=== PATIENT | female | born 1970 | race Caucasian/White ===

== ENCOUNTER → 2016-11-21 | Outpatient (CLI) | payer OTHER ==
--- NOTE | 2016-11-21 15:58 | US ---
EXAMINATION TYPE: US pelvic complete DATE OF EXAM: 11/21/2016 COMPARISON: 10/11/2015 CLINICAL HISTORY: 46-year-old female Excessive and frequent menstruation n92.0. Patient states irregu lar, very heavy menses TECHNIQUE: Transabdominal (TA), TV not obtained due to enlarged uterus and ovaries are only able to be visualized transabdominally per previous scans Date of LMP: 10/28/2016 FINDINGS: Uterus: Anteverted measuring 14.3 x 6.1 x 8.4 cm. There is diffuse myometrial heterogeneity with at least 3 focal fibroids, largest measuring 3.6 cm centered along the mid uterine body intramural in th e endometrium. Endometrial Stripe: 1.3 cm which correspond to the secretory phase. Right Ovary: 2.4 x 2.9 x 2.3 cm Left Ovary: 2.5 x 2.3 x 2.7 cm Ovaries appear within normal limits. No evident adnexal abnormality or cul-de-sac free fluid. IMPRESSION: Fibroid uterus. Dominant focal fibroid measures 3.6 cm, increased in size from 10/11/2015 where it jasson ured 2.4 cm. It has a submucosal location interrupting the endometrium of the mid uterine body.
== END | disposition home or self-care (01) ==
LOC: RADUSWWP 13:53
PROVIDERS: ATTEND Internal Medicine
DX: N92.0 Excessive and frequent menstruation with regular cycle (principal)
CPT/HCPCS: 76856

== ENCOUNTER → 2017-01-31 | Outpatient (CLI) | payer OTHER ==
[2017-01-31 11:05] LABS: ALT 30 U/L (9-52); AST 20 U/L (14-36); Alkaline Phosphatase 59 U/L (38-126); Anion Gap 7 mmol/L; Blood Urea Nitrogen 12 mg/dL (7-17); Calcium 9.5 mg/dL (8.4-10.2); Carbon Dioxide 24 mmol/L (22-30); Chloride 106 mmol/L (98-107); Cholesterol 158 mg/dL (<200); Glucose 109 mg/dL (74-99); HDL Cholesterol 46 mg/dL (40-60); Non-African American GFR(MDRD) >60 (>60 ml/min/1.73 sqM); Potassium 4.6 mmol/L (3.5-5.1); Sodium 137 mmol/L (137-145); Total Bilirubin 0.6 mg/dL (0.2-1.3)
== END | disposition home or self-care (01) ==
LOC: LABWHC1 09:45
PROVIDERS: ATTEND Internal Medicine
DX: I10 Essential (primary) hypertension (principal); B18.2 Chronic viral hepatitis C; R53.83 Other fatigue
CPT/HCPCS: 36415; 80053; 80061; 84443; 85025

== ENCOUNTER → 2017-01-31 | Outpatient (CLI) | payer OTHER ==
[2017-01-31 10:39] LABS: Anisocytosis Slight; Basophils % (A) 1 %; CHCM 30.1; Eosinophils # (A) 0.1 k/uL (0-0.7); Eosinophils % (A) 2 %; HDW 2.76; HGB 12.6 gm/dL (11.4-16.0); Hypochromasia Marked; Luc # (Auto) 0.07; Luc % (Auto) 1; Lymphocytes # (A) 1.1 k/uL (1.0-4.8); Lymphocytes % (A) 22 %; MCH 24.7 pg (25.0-35.0); MCHC 30.9 g/dL (31.0-37.0); Mean Platelet Volume 8.1; Monocytes # (A) 0.4 k/uL (0-1.0); Monocytes % (A) 8 %; Neutrophils # (A) 3.3 k/uL (1.3-7.7); Neutrophils % (A) 66 %; RBC 5.12 m/uL (3.80-5.40); RDW 16.1 % (11.5-15.5); WBC 4.9 k/uL (3.8-10.6); WBC (Perox) 5.21
== END | disposition home or self-care (01) ==
LOC: LABPAT 09:47
PROVIDERS: ATTEND Obstetrics & Gynecology
DX: Z01.818 Encounter for other preprocedural examination (principal)
CPT/HCPCS: 85025

== ENCOUNTER 2017-05-27 09:14 | Observation (INO) | payer OTHER ==
[2017-05-27 09:59] LABS: Amorphous Sediment,Urine Occasional /hpf; Appearance,Urine Cloudy (Clear); Bacteria,Urine Rare /hpf; Bilirubin,Urine Negative (Negative); Blood,Urine Small (Negative); Color,Urine Dark Yellow; Glucose,Urine (UA) Negative (Negative); Ketones,Urine Trace (Negative); Leukocyte Esterase,Urine Moderate (Negative); Mucus,Urine Moderate /hpf; Nitrite,Urine Negative (Negative); Protein,Urine 1+ (Negative); RBC,Urine 8 /hpf (0-5); Specific Gravity,Urine 1.026 (1.001-1.035); Squamous Epithelial Cell,Urine 10 /hpf (0-4); WBC,Urine 9 /hpf (0-5)
--- NOTE | 2017-05-27 10:02 | ED ---
Female Urogenital HPI <Jamshid Cabral - Last Filed: 05/27/17 12:02> - General Source: patient, RN notes reviewed Mode of arrival: ambulatory Limitations: no limitations <Gulshan Roberts - Last Filed: 05/27/17 12:11> - General Chief complaint: Urogenital Stated complaint: Vaginal bleeding Time Seen by Provider: 05/27/17 09:37 - History of Present Illness Initial comments: This a 47-year-old female presents emergency Department chief complaint of vaginal spotting. Patient states she had a hysterectomy 3 months ago. Patient states she had sexual intercourse with night and Monday morning. States that she woke up with some spotting. She was told by her [employer] that she would have some spotting but states that she is concerned that she had some pelvic cramping. Patient states that her sexual course was rougher than usual. She states she has no active bleeding. She did notice that her urine was slightly darker than usual. Denies fever, chills, flank pain. Denies any nausea vomiting. Patient's matrix bath attendant is Dr. Rose. (Gulshan Roberts) - Related Data Home Medications Medication Instructions Recorded Confirmed ALPRAZolam [Xanax] 1 mg PO BID PRN 02/07/17 05/27/17 Acetaminophen Tab [Tylenol Tab] 500 mg PO Q6H PRN 02/07/17 05/27/17 Cyclobenzaprine [Flexeril] 10 mg PO HS 02/07/17 05/27/17 HYDROcodone/APAP 10-325MG [[place] 1 tab PO DAILY PRN 02/07/17 05/27/17 10-325] Metoprolol Tartrate [Lopressor] 25 mg PO BID PRN 05/27/17 05/27/17 Allergies Allergy/AdvReac Type Severity Reaction Status Date / Time No Known Allergies Allergy Verified 05/27/17 10:57 Review of Systems ROS Other: All systems not noted in ROS Statement are negative. <Jamshid Cabral - Last Filed: 05/27/17 12:02> ROS Other: All systems not noted in ROS Statement are negative. <Gulshan Roberts - Last Filed: 05/27/17 12:11> ROS Statement: Those systems with pertinent positive or pertinent negative responses have been documented in the HPI. Past Medical History Additional Past Medical History / Comment(s): vertigo, tachycardia, 2 BULGING DISCS IN BACK(chronic pain, sees Dr Ruiz), BILAT CARPAL TUNNEL. OB history: 4 vaginal deliveries History of Any Multi-Drug Resistant Organisms: None Reported Past Surgical History: Tubal Ligation Additional Past Surgical History / Comment(s): teeth pulled Past Anesthesia/Blood Transfusion Reactions: No Reported Reaction Past Psychological History: Anxiety Smoking Status: Current every day smoker Past Alcohol Use History: Occasional Past Drug Use History: None Reported - Past Family History Mother Family Medical History: No Reported History <Gulshan Roberts - Last Filed: 05/27/17 12:11> General Exam Limitations: no limitations General appearance: alert, in no apparent distress Head exam: Present: atraumatic, normocephalic, normal inspection Respiratory exam: Present: normal lung sounds bilaterally. Absent: respiratory distress, wheezes, rales, rhonchi, stridor Cardiovascular Exam: Present: regular rate, normal rhythm, normal heart sounds. Absent: systolic murmur, diastolic murmur, rubs, gallop, clicks GI/Abdominal exam: Present: soft, tenderness (Minimal suprapubic), normal bowel sounds. Absent: distended, guarding, rebound, rigid External exam: Present: normal external exam, other (Exam performed with Poonam CONTI) Speculum exam: Present: vaginal discharge (There is very thin straw-colored discharge with some blood-tinged areas there was some bubbling noted unable to visualize cervical cuff) Back exam: Absent: CVA tenderness (R), CVA tenderness (L) <Gulshan Roberts - Last Filed: 05/27/17 12:11> Course <Jamshid Cabral - Last Filed: 05/27/17 12:02> <Gulshan Roberts - Last Filed: 05/27/17 12:11> Vital Signs 05/27/17 09:16 Temperature 98.0 F Pulse Rate 108 H Respiratory 20 Rate Blood Pressure 141/97 O2 Sat by Pulse 98 Oximetry - Reevaluation(s) Reevaluation #1: 05/27/17 12:02 PA supervision: I did personally do a [id number] evaluation patient did discuss findings with her. She does demonstrate some mild tenderness to the suprapubic and right lower quadrant abdomen. I did review the imaging and report and discussed the case with Dr. Vigil who did come to the emergency department to see the patient. The CAT scan does show evidence of diverticulitis with presumed small perforation (Jamshid Cabral) Reevaluation #2: 05/27/17 12:07 I did discuss the case with Dr. Vigil and with Dr. Nichols. Patient will be admitted with consultation additionally to [employer] MSW, Dr. Rose (Jamshid Cabral) Medical Decision Making - Lab Data Result diagrams: 05/27/17 10:47 05/27/17 10:47 <Jamshid Cabral - Last Filed: 05/27/17 12:02> - Lab Data Result diagrams: 05/27/17 10:47 05/27/17 10:47 <Gulshan Roberts - Last Filed: 05/27/17 12:11> - Medical Decision Making 47-year-old female presents department for abdominal pain after intercourse. Patient did have pelvic exam which showed vaginal discharge and some concerns for possible fistula. CT was performed showed possibility of diverticulitis secondary to free air and inflammatory changes. Patient was evaluated in the emergency department by Dr. vigil feels that this may be related to vaginal cuff tear secondary to her intercourse. Patient be admitted at this time with IV antibiotics Dr. Nichols, consult in addition with Dr. vigil and Dr. Rose. ( Gulshan Roberts) - Lab Data Lab Results 05/27/17 05/27/17 05/27/17 Range/Units 09:37 10:47 10:47 WBC 10.4 (3.8-10.6) k/uL RBC 5.57 H (3.80-5.40) m/uL Hgb 15.4 (11.4-16.0) gm/dL Hct 45.2 (34.0-46.0) % MCV 81.2 (80.0-100.0) fL MCH 27.6 (25.0-35.0) pg MCHC 34.0 (31.0-37.0) g/dL RDW 16.8 H (11.5-15.5) % Plt Count 229 (150-450) k/uL Neutrophils % 79 % Lymphocytes % 13 % Monocytes % 6 % Eosinophils % 1 % Basophils % 0 % Neutrophils # 8.2 H (1.3-7.7) k/uL Lymphocytes # 1.3 (1.0-4.8) k/uL Monocytes # 0.6 (0-1.0) k/uL Eosinophils # 0.1 (0-0.7) k/uL Basophils # 0.0 (0-0.2) k/uL Anisocytosis Slight Sodium 139 (137-145) mmol/L Potassium 4.3 (3.5-5.1) mmol/L Chloride 106 (98-107) mmol/L Carbon Dioxide 22 (22-30) mmol/L Anion Gap 11 mmol/L BUN 13 (7-17) mg/dL Creatinine 0.80 (0.52-1.04) mg/dL Est GFR (CKD-EPI)AfAm >90 (>60 ml/min/1.73 sqM) Est GFR (CKD-EPI)NonAf 89 (>60 ml/min/1.73 sqM) Glucose 108 H (74-99) mg/dL Plasma Lactic Acid Robe (0.7-2.0) mmol/L Calcium 9.4 (8.4-10.2) mg/dL Total Bilirubin 1.3 (0.2-1.3) mg/dL AST 20 (14-36) U/L ALT 27 (9-52) U/L Alkaline Phosphatase 74 (38-126) U/L Total Protein 7.2 (6.3-8.2) g/dL Albumin 4.0 (3.5-5.0) g/dL Urine Color Dark Yellow Urine Appearance Cloudy H (Clear) Urine pH 6.0 (5.0-8.0) Ur Specific [place] 1.026 (1.001-1.035) Urine Protein 1+ H (Negative) Urine Glucose (UA) Negative (Negative) Urine Ketones Trace H (Negative) Urine Blood Small H (Negative) Urine Nitrite Negative (Negative) Urine Bilirubin Negative (Negative) Urine Urobilinogen 3.0 (<2.0) mg/dL Ur Leukocyte Esterase Moderate H (Negative) Urine RBC 8 H (0-5) /hpf Urine WBC 9 H (0-5) /hpf Ur Squamous Epith Cells 10 H (0-4) /hpf Amorphous Sediment Occasional H (None) /hpf Urine Bacteria Rare H (None) /hpf Urine Mucus Moderate H (None) /hpf 05/27/17 Range/Units 10:47 WBC (3.8-10.6) k/uL RBC (3.80-5.40) m/uL Hgb (11.4-16.0) gm/dL Hct (34.0-46.0) % MCV (80.0-100.0) fL MCH (25.0-35.0) pg MCHC (31.0-37.0) g/dL RDW (11.5-15.5) % Plt Count (150-450) k/uL Neutrophils % % Lymphocytes % % Monocytes % % Eosinophils % % Basophils % % Neutrophils # (1.3-7.7) k/uL Lymphocytes # (1.0-4.8) k/uL Monocytes # (0-1.0) k/uL Eosinophils # (0-0.7) k/uL Basophils # (0-0.2) k/uL Anisocytosis Sodium (137-145) mmol/L Potassium (3.5-5.1) mmol/L Chloride (98-107) mmol/L Carbon Dioxide (22-30) mmol/L Anion Gap mmol/L BUN (7-17) mg/dL Creatinine (0.52-1.04) mg/dL Est GFR (CKD-EPI)AfAm (>60 ml/min/1.73 sqM) Est GFR (CKD-EPI)NonAf (>60 ml/min/1.73 sqM) Glucose (74-99) mg/dL Plasma Lactic Acid Robe 0.9 (0.7-2.0) mmol/L Calcium (8.4-10.2) mg/dL Total Bilirubin (0.2-1.3) mg/dL AST (14-36) U/L ALT (9-52) U/L Alkaline Phosphatase (38-126) U/L Total Protein (6.3-8.2) g/dL Albumin (3.5-5.0) g/dL Urine Color Urine Appearance (Clear) Urine pH (5.0-8.0) Ur Specific [place] (1.001-1.035) Urine Protein (Negative) Urine Glucose (UA) (Negative) Urine Ketones (Negative) Urine Blood (Negative) Urine Nitrite (Negative) Urine Bilirubin (Negative) Urine Urobilinogen (<2.0) mg/dL Ur Leukocyte Esterase (Negative) Urine RBC (0-5) /hpf Urine WBC (0-5) /hpf Ur Squamous Epith Cells (0-4) /hpf Amorphous Sediment (None) /hpf Urine Bacteria (None) /hpf Urine Mucus (None) /hpf Disposition <Jamshid Cabral - Last Filed: 05/27/17 12:02> <Gulshan Roberts - Last Filed: 05/27/17 12:11> Clinical Impression: Intra-abdominal free air of unknown etiology, Abdominal pain Disposition: ADMITTED IP TO THIS HOSP Condition: Fair Referrals: Chantel Nichols MD [Primary Care Provider] - 1-2 days
[2017-05-27] MEDS ORDERED: RX INFO: IV CONTRAST WAS GIVEN 1 EACH MISC MISCELLANE PRN (10:36)
[2017-05-27 11:07] LABS: Anisocytosis Slight; Basophils % (A) 0 %; Eosinophils # (A) 0.1 k/uL (0-0.7); Eosinophils % (A) 1 %; HCT 45.2 % (34.0-46.0); HGB 15.4 gm/dL (11.4-16.0); Lymphocytes # (A) 1.3 k/uL (1.0-4.8); Lymphocytes % (A) 13 %; MCH 27.6 pg (25.0-35.0); MCV 81.2 fL (80.0-100.0); Mean Platelet Volume 7.8; Monocytes # (A) 0.6 k/uL (0-1.0); Monocytes % (A) 6 %; Neutrophils # (A) 8.2 k/uL (1.3-7.7); Neutrophils % (A) 79 %; Platelet Count 229 k/uL (150-450); RBC 5.57 m/uL (3.80-5.40); RDW 16.8 % (11.5-15.5); WBC 10.4 k/uL (3.8-10.6)
[2017-05-27 11:12] LABS: ALT 27 U/L (9-52); AST 20 U/L (14-36); Alkaline Phosphatase 74 U/L (38-126); Anion Gap 11 mmol/L; Blood Urea Nitrogen 13 mg/dL (7-17); Calcium 9.4 mg/dL (8.4-10.2); Carbon Dioxide 22 mmol/L (22-30); Chloride 106 mmol/L (98-107); Glucose 108 mg/dL (74-99); Potassium 4.3 mmol/L (3.5-5.1); Sodium 139 mmol/L (137-145); Total Bilirubin 1.3 mg/dL (0.2-1.3); Total Protein 7.2 g/dL (6.3-8.2)
--- NOTE | 2017-05-27 11:31 | CT ---
EXAMINATION TYPE: CT abdomen pelvis w con DATE OF EXAM: 05/27/2017 REFERENCE: NONE HISTORY: Pain HISTORY: Pelvic pain post sexual activity 2 days. Post OP hysterectomy February 2017 REFERENCE: NONE CT DLP: 957 mGy Automated exposure control for dose reduction was used. TECHNIQUE: Helical acquisition through the abdomen and pelvis was obtained following the oral ingesti on of without Oral Contrast and following intravenous administration of 100 mL of Isovue 300. The caren a was reformatted in axial, coronal and sagittal projections. FINDINGS: Visualized portions of the lungs are clear. There is no pleural or pericardial fluid. The heart is not enlarged. Within the abdomen, the liver is upper limits of normal in size. The spleen and gallbladder are danielle l. There are few drops of free air surrounding the liver. There is inflammatory change adjacent to the s igmoid colon and there is at least one bubble of free air in the pelvis. This would BE compatible wit h diverticulitis with a small perforation. No pericolonic abscess is seen. Both adrenal glands are normal. The pancreas is unremarkable. Both kidneys demonstrate function and appear morphologically normal. There is no significant retroperitoneal, iliac or inguinal adenopathy. The uterus and ovaries are not visualized. The appendix is normal. Small bowel loops are normal. There is no significant free fluid. There is mild hypertrophic spondylosis and degenerative disc disease within the spine. IMPRESSION: 1. EVIDENCE OF MILD, ACUTE DIVERTICULITIS WITH SMALL PERFORATION. 2. MILD DEGENERATIVE CHANGE WITHIN THE SPINE.
[2017-05-27] MEDS ORDERED: PIPERACILLIN-TAZOBACTAM 3.375 GM in DEXTROSE/WATER 1 50ML.BAG IVPB STA (11:38)
[2017-05-27] MEDS ORDERED: ONDANSETRON 4 MG/2 ML VIAL IVP PRN (12:06)
[2017-05-27] MEDS ORDERED: HYDROcodone/APAP 10-325MG 1 EACH TAB PO PRN (12:08)
--- NOTE | 2017-05-27 12:19 | P.GSCN ---
History of Present Illness Consult date: 05/27/17 Reason for Consult: Abdominal pain History of present illness: I was called by the ER to evaluate this patient with complaints of lower abdominal pain. This began in the last day or so. Pain is lower abdomen. Some anorexia. No nausea or vomiting. She said her lower abdominal pain was increased with bowel movement. No rectal bleeding or melena. She has a history of a robotic hysterectomy 3 months ago. She has had some vaginal discharge since that time. Today her vaginal discharge had a more bloody and semi-purulent appearance. Denies fevers. She is afebrile. She is tachycardic. White blood cell count and hemoglobin normal. The patient states that she was somewhat intoxicated and had rough intercourse a proximally 24-36 hours ago. She believes this precipitated the symptoms. CAT scan was obtained. CAT scan shows some inflammatory changes in the pelvis. There is a few bubbles of pneumoperitoneum adjacent to the right lobe of the liver. The sigmoid colon does have a relatively normal appearance although she does have diverticulosis. She has a family history of diverticulitis in her mother who underwent a Meadows's procedure. ER speculum evaluation showed no definite tear. 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 Review of Systems The patient denies any acute changes in vision or hearing, no dysphagia or odynophagia, no chest pain or shortness of breath, no dysuria or hematuria, no headache, no runny nose, no rectal bleeding or melena, no unexplained weight loss Past Medical History Additional Past Medical History / Comment(s): vertigo, tachycardia, 2 BULGING DISCS IN BACK(chronic pain, sees Dr Ruiz), BILAT CARPAL TUNNEL. OB history: 4 vaginal deliveries History of Any Multi-Drug Resistant Organisms: None Reported Past Surgical History: Tubal Ligation Additional Past Surgical History / Comment(s): teeth pulled Past Anesthesia/Blood Transfusion Reactions: No Reported Reaction Past Psychological History: Anxiety Smoking Status: Current every day smoker Past Alcohol Use History: Occasional Past Drug Use History: None Reported - Past Family History Mother Family Medical History: No Reported History Medications and Allergies Home Medications Medication Instructions Recorded Confirmed Type ALPRAZolam [Xanax] 1 mg PO BID PRN 02/07/17 05/27/17 History Acetaminophen Tab [Tylenol Tab] 500 mg PO Q6H PRN 02/07/17 05/27/17 History Cyclobenzaprine [Flexeril] 10 mg PO HS 02/07/17 05/27/17 History HYDROcodone/APAP 10-325MG [[place] 1 tab PO DAILY PRN 02/07/17 05/27/17 History 10-325] Metoprolol Tartrate [Lopressor] 25 mg PO BID PRN 05/27/17 05/27/17 History Allergies Allergy/AdvReac Type Severity Reaction Status Date / Time No Known Allergies Allergy Verified 05/27/17 10:57 Surgical - Exam Vital Signs Temp Pulse Resp BP Pulse Ox 98.0 F 108 H 20 141/97 98 05/27/17 09:16 05/27/17 09:16 05/27/17 09:16 05/27/17 09:16 05/27/17 09:16 Physical exam: General: Well-developed, well-nourished HEENT: Normocephalic, sclerae nonicteric Abdomen: Lower abdominal tenderness, mild fullness, no rebound or guarding, no upper abdominal tenderness Extremities: No edema Neuro: Alert and oriented Results - Labs 05/27/17 10:47 05/27/17 10:47 Abnormal Lab Results - Last 24 Hours (Table) 05/27/17 05/27/17 05/27/17 Range/Units 09:37 10:47 10:47 RBC 5.57 H (3.80-5.40) m/uL RDW 16.8 H (11.5-15.5) % Neutrophils # 8.2 H (1.3-7.7) k/uL Glucose 108 H (74-99) mg/dL Urine Appearance Cloudy H (Clear) Urine Protein 1+ H (Negative) Urine Ketones Trace H (Negative) Urine Blood Small H (Negative) Ur Leukocyte Esterase Moderate H (Negative) Urine RBC 8 H (0-5) /hpf Urine WBC 9 H (0-5) /hpf Ur Squamous Epith Cells 10 H (0-4) /hpf Amorphous Sediment Occasional H (None) /hpf Urine Bacteria Rare H (None) /hpf Urine Mucus Moderate H (None) /hpf Diabetes panel 05/27/17 Range/Units 10:47 Sodium 139 (137-145) mmol/L Potassium 4.3 (3.5-5.1) mmol/L Chloride 106 (98-107) mmol/L Carbon Dioxide 22 (22-30) mmol/L BUN 13 (7-17) mg/dL Creatinine 0.80 (0.52-1.04) mg/dL Glucose 108 H (74-99) mg/dL Calcium 9.4 (8.4-10.2) mg/dL AST 20 (14-36) U/L ALT 27 (9-52) U/L Alkaline Phosphatase 74 (38-126) U/L Total Protein 7.2 (6.3-8.2) g/dL Albumin 4.0 (3.5-5.0) g/dL Calcium panel 05/27/17 Range/Units 10:47 Calcium 9.4 (8.4-10.2) mg/dL Albumin 4.0 (3.5-5.0) g/dL Pituitary panel 05/27/17 Range/Units 10:47 Sodium 139 (137-145) mmol/L Potassium 4.3 (3.5-5.1) mmol/L Chloride 106 (98-107) mmol/L Carbon Dioxide 22 (22-30) mmol/L BUN 13 (7-17) mg/dL Creatinine 0.80 (0.52-1.04) mg/dL Glucose 108 H (74-99) mg/dL Calcium 9.4 (8.4-10.2) mg/dL Adrenal panel 05/27/17 Range/Units 10:47 Sodium 139 (137-145) mmol/L Potassium 4.3 (3.5-5.1) mmol/L Chloride 106 (98-107) mmol/L Carbon Dioxide 22 (22-30) mmol/L BUN 13 (7-17) mg/dL Creatinine 0.80 (0.52-1.04) mg/dL Glucose 108 H (74-99) mg/dL Calcium 9.4 (8.4-10.2) mg/dL Total Bilirubin 1.3 (0.2-1.3) mg/dL AST 20 (14-36) U/L ALT 27 (9-52) U/L Alkaline Phosphatase 74 (38-126) U/L Total Protein 7.2 (6.3-8.2) g/dL Albumin 4.0 (3.5-5.0) g/dL Assessment and Plan (1) Intra-abdominal free air of unknown etiology Narrative/Plan: The clinical scenario was discussed in detail with the patient. Given the appearance of the sigmoid colon on CAT scan I'm more inclined to believe the pneumoperitoneum and the pelvic inflammatory changes are related to the rough intercourse and probable disruption of the vaginal cuff. Will begin broad- spectrum antibiotics. Option of diagnostic laparoscopy was reviewed. She would like to avoid surgery if possible. I've also discussed this case with Dr. Jones who is covering for Dr. Rose. He will evaluate this patient and agrees with the current plan. Begin clear liquids. We'll follow closely. Current Visit: Yes Status: Acute Code(s): K66.8 - OTHER SPECIFIED DISORDERS OF PERITONEUM SNOMED Code(s): 82951497
[2017-05-27] MEDS ORDERED: PIPERACILLIN-TAZOBACTAM 3.375 GM in DEXTROSE/WATER 1 50ML.BAG IVPB SCH (16:00)
[2017-05-27 16:02] VITALS: RESP 16
[2017-05-27] MEDS: metroNIDAZOLE-NS PMX 500 MG in SALINE 1 100ML.BAG IVPB SCH ×2 (16:54→23:49)
[2017-05-27] MEDS: PIPERACILLIN-TAZOBACTAM 3.375 GM in DEXTROSE/WATER 1 50ML.BAG IVPB SCH (20:12)
[2017-05-27] MEDS: ALPRAZolam 1 MG TAB PO PRN (20:12)
[2017-05-27] MEDS: METOPROLOL TARTRATE 25 MG TAB PO SCH (20:12)
[2017-05-28] MEDS: PIPERACILLIN-TAZOBACTAM 3.375 GM in DEXTROSE/WATER 1 50ML.BAG IVPB SCH ×2 (04:15→11:31)
--- NOTE | 2017-05-28 07:21 | P.OBCN ---
History of Present Illness Consult date: 05/28/17 Requesting physician: Jeffery Grande Reason for consult: other (Left lower quadrant pain after intercourse) Chief complaint: Left lower quadrant pain History of present illness: This patient is a pleasant 47-year-old 4 para [address] Rose's who status post DaVinci vaginal hysterectomy and bilateral salpingo- oophorectomy on February 09 for benign indications. Patient had a uncomplicated postoperative course and was seen by Dr. Rose on March 13 an examination at that time showed an intact vaginal cuff and normal postop findings. Of note the patient was noted to have a growth during the intraoperative cystoscopy of the bladder. Patient was referred to Dr. 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 This apparently does not require any further evaluation. Patient states that on evening / Monday morning she had a little bit too much to drink and apparently had traumatic intercourse. Following intercourse patient developed left lower quadrant and pelvic pain. She also noticed some small amount of vaginal bleeding. Because the pain persisted she went to the emergency department and evaluation there shows a normal CBC however CAT scan shows some inflammatory changes in the sigmoid area and possible small area of free air. There was possible concern for a small diverticular perforation per the radiologist. Patient denies any nausea, vomiting, diarrhea. She denies fever or any other abdominal pain. She's been tolerating regular diet. She denies history of diverticulitis or other bowel problems. Patient was seen by Dr. Grande and thought not to have an acute abdomen but due to the free air, recommendations were for admission for observation and I agreed. Patient states that she continues to feel well this morning and her pain is still there but continues to improve. She is no longer having vaginal bleeding. Review of Systems Constitutional: Reports as per HPI Gastrointestinal: Reports as per HPI, Reports constipation Genitourinary: Reports as per HPI Past Medical History Additional Past Medical History / Comment(s): vertigo, tachycardia, 2 BULGING DISCS IN BACK(chronic pain, sees Dr Ruiz), BILAT CARPAL TUNNEL. OB history: 4 vaginal deliveries History of Any Multi-Drug Resistant Organisms: None Reported Past Surgical History: Tubal Ligation Additional Past Surgical History / Comment(s): teeth pulled. Da Abel vaginal hysterectomy and bilateral salpingo-oophorectomy. Past Anesthesia/Blood Transfusion Reactions: No Reported Reaction Past Psychological History: Anxiety Smoking Status: Current every day smoker Past Alcohol Use History: Occasional Additional Past Alcohol Use History / Comment(s): SMOKES < 1 PPD SINCE AGE 16 Past Drug Use History: None Reported - Past Family History Mother Family Medical History: No Reported History Medications and Allergies Home Medications Medication Instructions Recorded Confirmed Type ALPRAZolam [Xanax] 1 mg PO BID PRN 02/07/17 05/27/17 History Acetaminophen Tab [Tylenol Tab] 500 mg PO Q6H PRN 02/07/17 05/27/17 History Cyclobenzaprine [Flexeril] 10 mg PO HS 02/07/17 05/27/17 History HYDROcodone/APAP 10-325MG [[place] 1 tab PO DAILY PRN 02/07/17 05/27/17 History 10-325] Metoprolol Tartrate [Lopressor] 25 mg PO BID PRN 05/27/17 05/27/17 History Allergies Allergy/AdvReac Type Severity Reaction Status Date / Time No Known Allergies Allergy Verified 05/27/17 15:40 Exam - Vital Signs Vital signs: Vital Signs Temp Pulse Pulse Resp BP BP Pulse Ox 05/27/17 19:43 98.1 F 83 16 115/76 97 05/27/17 15:25 98.5 F 92 16 137/78 97 05/27/17 14:50 98.6 F 05/27/17 14:36 96 18 153/86 98 05/27/17 14:00 101 H 20 142/56 97 05/27/17 12:00 98.5 F 102 H 20 152/84 96 05/27/17 09:16 98.0 F 108 H 20 141/97 98 Intake and Output 05/27/17 05/28/17 05/28/17 22:59 06:59 14:59 Intake Total 1180 0 Balance 1180 0 Intake: Oral 1180 0 Other: # Voids 1 - OBG Physical Exam Abdomen: bowel sounds normal (Abdomen soft nontender. There is no rebound or guarding. She localized where her pain was to the deep left lower quadrant.), no diffuse tenderness, no bruit present, no guarding noted, no hepatomegaly, no splenomegaly, no mass Vulva: both: normal Cervix: absent (Speculum exam shows a small amount of yellow discharge. There is no bleeding. I'm unable to see any defect in the vaginal cuff or laceration. ) Uterus: absent Results CT of the abdomen and pelvis as above. Result Diagrams: 05/27/17 10:47 05/27/17 10:47 Abnormal Lab Results - Last 24 Hours (Table) 05/27/17 05/27/17 05/27/17 Range/Units 09:37 10:47 10:47 RBC 5.57 H (3.80-5.40) m/uL RDW 16.8 H (11.5-15.5) % Neutrophils # 8.2 H (1.3-7.7) k/uL Glucose 108 H (74-99) mg/dL Urine Appearance Cloudy H (Clear) Urine Protein 1+ H (Negative) Urine Ketones Trace H (Negative) Urine Blood Small H (Negative) Ur Leukocyte Esterase Moderate H (Negative) Urine RBC 8 H (0-5) /hpf Urine WBC 9 H (0-5) /hpf Ur Squamous Epith Cells 10 H (0-4) /hpf Amorphous Sediment Occasional H (None) /hpf Urine Bacteria Rare H (None) /hpf Urine Mucus Moderate H (None) /hpf Microbiology - Last 24 Hours (Table) 05/27/17 09:37 Urine Culture - Preliminary Urine,Clean Catch Assessment and Plan Assessment: This is a pleasant 47-year-old 4 para 4 female whose developed some left lower quadrant pain status post traumatic intercourse. Patient is approximately 14 weeks out from a laparoscopic hysterectomy. The concern here of course is the fact that there was a tiny bit of free air noted on the patient 's CAT scan. Although I cannot find a defect in the vaginal cuff or laceration , certainly given the clinical picture of the patient having traumatic intercourse and recent surgery and its quite feasible that these findings are secondary to a small amount of air that perhaps went through the vaginal cuff. At this point clinically there is no evidence of a bowel perforation or peritonitis. From a gynecologic standpoint, this patient appears stable and if this is secondary to traumatic intercourse will continue to improve. I do agree with perhaps a 7 day course of oral antibiotics (Flagyl or antibiotic of choice per Dr. Grande) and a short term follow-up with Dr. Rose this week in the office on or Monday. I discussed this in detail with the patient, including Dr. Grande's in my concerns and she agrees to follow up in the office later this week or call if she has any other worsening of her pain or other symptomatology. I really do not think this is a ruptured diverticulum at this point in the absence of an elevated white count or other abdominal findings. She is getting a repeat CBC this morning and will be seen by Dr. Grande at that time. She is cleared for discharge from a gynecology standpoint. Patient was instructed on pelvic rest until seen by Dr. Rose. (1) Abdominal pain Current Visit: Yes Status: Acute Code(s): R10.9 - UNSPECIFIED ABDOMINAL PAIN SNOMED Code(s): 22207392 (2) Intra-abdominal free air of unknown etiology Current Visit: Yes Status: Acute Code(s): K66.8 - OTHER SPECIFIED DISORDERS OF PERITONEUM SNOMED Code(s): 79367146
[2017-05-28 07:53] LABS: Anisocytosis Slight; Basophils % (A) 1 %; Eosinophils # (A) 0.2 k/uL (0-0.7); Eosinophils % (A) 3 %; HCT 40.8 % (34.0-46.0); HGB 13.4 gm/dL (11.4-16.0); Lymphocytes # (A) 1.1 k/uL (1.0-4.8); Lymphocytes % (A) 19 %; MCH 27.3 pg (25.0-35.0); MCHC 32.7 g/dL (31.0-37.0); MCV 83.3 fL (80.0-100.0); Mean Platelet Volume 7.5; Monocytes # (A) 0.4 k/uL (0-1.0); Monocytes % (A) 6 %; Neutrophils # (A) 4.1 k/uL (1.3-7.7); Neutrophils % (A) 70 %; Platelet Count 234 k/uL (150-450); RDW 16.5 % (11.5-15.5); WBC 5.8 k/uL (3.8-10.6)
[2017-05-28 08:06] LABS: Anion Gap 7 mmol/L; Blood Urea Nitrogen 11 mg/dL (7-17); Calcium 8.4 mg/dL (8.4-10.2); Carbon Dioxide 24 mmol/L (22-30); Chloride 110 mmol/L (98-107); Glucose 86 mg/dL (74-99); Sodium 141 mmol/L (137-145)
[2017-05-28] MEDS: metroNIDAZOLE-NS PMX 500 MG in SALINE 1 100ML.BAG IVPB SCH (08:37)
[2017-05-28] MEDS: METOPROLOL TARTRATE 25 MG TAB PO SCH (08:49)
[2017-05-28] MEDS: ALPRAZolam 1 MG TAB PO PRN (08:51)
[2017-05-28] MEDS ORDERED: RX INFO: IV CONTRAST WAS GIVEN 1 EACH MISC MISCELLANE PRN (10:02)
[2017-05-28] MEDS ORDERED: IOPAMIDOL-300 CONTRAST 30 ML VIAL (ORAL USE) PO PRN (10:02)
--- NOTE | 2017-05-28 10:14 | P.HPIM ---
History of Present Illness H&P Date: 05/28/17 Chief Complaint: Pelvic pain and vaginal spotting, Patient is a 47-year-old female who presented to [facility] emergency room due to pelvic pain and vaginal discharge was bloody spotting patient was evaluated in emergency room, she was having pelvic pain she was tachycardic she was afebrile and white blood count was normal she states that she had a history of robotic-assisted hysterectomy 3 months ago and since then she had vaginal discharge. She states that in the last 24-36 hours prior to presentation the patient states that she was somewhat intoxicated and had rough intercouse. She believes this precipitated the symptoms. Computed tomography scan of the abdomen and pelvis was done in the emergency room and revealed inflammatory changes in the pelvic area the air in the pelvis, surgical consultation and DRAWER WAXER consultation were requested patient was started on IV antibiotics. Past Medical History Additional Past Medical History / Comment(s): vertigo, tachycardia, 2 BULGING DISCS IN BACK(chronic pain, sees Dr Ruiz), BILAT CARPAL TUNNEL. OB history: 4 vaginal deliveries History of Any Multi-Drug Resistant Organisms: None Reported Past Surgical History: Tubal Ligation Additional Past Surgical History / Comment(s): teeth pulled. Da Abel vaginal hysterectomy and bilateral salpingo-oophorectomy. Past Anesthesia/Blood Transfusion Reactions: No Reported Reaction Past Psychological History: Anxiety Smoking Status: Current every day smoker Past Alcohol Use History: Occasional Additional Past Alcohol Use History / Comment(s): SMOKES < 1 PPD SINCE AGE 16 Past Drug Use History: None Reported - Past Family History Mother Family Medical History: No Reported History Medications and Allergies Home Medications Medication Instructions Recorded Confirmed Type ALPRAZolam [Xanax] 1 mg PO BID PRN 02/07/17 05/27/17 History Acetaminophen Tab [Tylenol Tab] 500 mg PO Q6H PRN 02/07/17 05/27/17 History Cyclobenzaprine [Flexeril] 10 mg PO HS 02/07/17 05/27/17 History HYDROcodone/APAP 10-325MG [[place] 1 tab PO DAILY PRN 02/07/17 05/27/17 History 10-325] Metoprolol Tartrate [Lopressor] 25 mg PO BID PRN 05/27/17 05/27/17 History Allergies Allergy/AdvReac Type Severity Reaction Status Date / Time No Known Allergies Allergy Verified 05/27/17 15:40 Physical Exam Vitals: Vital Signs Temp Pulse Pulse Pulse Resp BP BP 05/28/17 08:55 80 05/28/17 08:39 98.0 F 80 16 109/70 05/27/17 19:43 98.1 F 83 16 115/76 05/27/17 15:25 98.5 F 92 16 137/78 05/27/17 14:50 98.6 F 05/27/17 14:36 96 18 153/86 05/27/17 14:00 101 H 20 142/56 05/27/17 12:00 98.5 F 102 H 20 152/84 Pulse Ox 05/28/17 08:55 05/28/17 08:39 97 05/27/17 19:43 97 05/27/17 15:25 97 05/27/17 14:50 05/27/17 14:36 98 05/27/17 14:00 97 05/27/17 12:00 96 Intake and Output 05/27/17 05/28/17 05/28/17 22:59 06:59 14:59 Intake Total 1180 0 Balance 1180 0 Intake: Oral 1180 0 Other: # Voids 1 In general patient is alert and oriented 3 in no apparent distress HEENT head normocephalic and atraumatic Acute is supple no JVD no goiter no lymphadenopathy Chest exam reveals a few scattered crackles no wheezing Cardiac exam reveals regular heart sounds S1 and S2 no gallops no murmurs Abdomen is soft was tenderness in the bilateral pelvic area organomegaly no palpable masses was normal bowel sounds Extremity exam reveals no edema no cyanosis or clubbing Results CBC & Chem 7: 05/28/17 07:11 05/28/17 07:11 Labs: Abnormal Lab Results - Last 24 Hours (Table) 05/27/17 05/27/17 05/28/17 Range/Units 10:47 10:47 07:11 RBC 5.57 H (3.80-5.40) m/uL RDW 16.8 H 16.5 H (11.5-15.5) % Neutrophils # 8.2 H (1.3-7.7) k/uL Chloride (98-107) mmol/L Glucose 108 H (74-99) mg/dL 05/28/17 Range/Units 07:11 RBC (3.80-5.40) m/uL RDW (11.5-15.5) % Neutrophils # (1.3-7.7) k/uL Chloride 110 H (98-107) mmol/L Glucose (74-99) mg/dL Microbiology - Last 24 Hours (Table) 05/27/17 09:37 Urine Culture - Preliminary Urine,Clean Catch Thrombosis Risk Factor Assmnt - Choose All That Apply Any of the Below Risk Factors Present?: Yes Each Factor Represents 1 point: Obesity (BMI >25) Other Risk Factors: No Other congenital or acquired thrombophilia - If yes, enter type in comment: No Thrombosis Risk Factor Assessment Total Risk Factor Score: 1 Thrombosis Risk Factor Assessment Level: Low Risk Assessment and Plan Plan: #1 pelvic inflammation it's not clear whether this is related to the sigmoid colon was diverticulitis or to disruption of the vaginal cuff #2 Free air in the abdomen #3 underlying history of tobacco abuse #4 underlying history of hypertension #5 underlying history of anxiety disorder At this time continue with IV antibiotics, will recheck computed tomography scan of the abdomen and pelvis tomorrow Surgical consultation and DRAWER WAXER consultation were reviewed.
[2017-05-28] MEDS ORDERED: NICOTINE 21MG/24HR PATCH TRANSDERM SCH (10:15)
[2017-05-28 11:28] VITALS: BP 104/68; PULSE 73; TEMP 98.1
--- NOTE | 2017-05-28 12:31 | P.PN ---
Subjective Progress Note Date: 05/28/17 Principal diagnosis: Pneumoperitoneum Patient feels better today. She is tolerating her liquid diet. She is afebrile. Pain is only in the lower abdomen at this time. White blood cell count normal. Gynecologic consultation noted. Objective - Vital Signs Vital signs: Vital Signs Temp 98.1 F 05/28/17 11:28 Pulse 73 05/28/17 11:28 Resp 16 05/28/17 11:28 BP 104/68 05/28/17 11:28 Pulse Ox 95 05/28/17 11:28 Intake & Output 05/27/17 05/28/17 05/28/17 18:59 06:59 18:59 Intake Total 600 580 Balance 600 580 Weight 87.09 kg Intake: Oral 600 580 Other: # Voids 1 - Exam Abdomen: Soft, nondistended, mild lower abdominal tenderness - Labs CBC & Chem 7: 05/28/17 07:11 05/28/17 07:11 Labs: Abnormal Lab Results - Last 24 Hours (Table) 05/28/17 05/28/17 Range/Units 07:11 07:11 RDW 16.5 H (11.5-15.5) % Chloride 110 H (98-107) mmol/L Microbiology - Last 24 Hours (Table) 05/27/17 09:37 Urine Culture - Preliminary Urine,Clean Catch Assessment and Plan (1) Intra-abdominal free air of unknown etiology Narrative/Plan: Continue advancing diet. Agree with gynecologic assessment. Outpatient oral antibiotics prescribed. Follow-up in the office post discharge. Current Visit: Yes Status: Acute Code(s): K66.8 - OTHER SPECIFIED DISORDERS OF PERITONEUM SNOMED Code(s): 15143341
--- NOTE | 2017-06-06 15:35 | P.DS ---
Providers Date of admission: 05/27/17 13:58 Expected date of discharge: 05/28/17 Attending physician: Chantel Nichols Consults: 05/27/17 12:06 Consult Physician Stat Consulting Provider: Jeffery Grande Consult Reason/Comments: Abdominal free air Do you want consulting provider notified?: Already Contacted Consult Physician Stat Consulting Provider: Hortensia Rose Consult Reason/Comments: Abdominal free air, recent hysterectomy Do you want consulting provider notified?: Yes Primary care physician: Chantel Nichols [facility] Course: Discharge diagnosis #1 pelvic inflammation it's not clear whether this is related to the sigmoid colon was diverticulitis or to disruption of the vaginal cuff #2 Free air in the abdomen #3 underlying history of tobacco abuse #4 underlying history of hypertension #5 underlying history of anxiety disorder Hospital course Patient is a 47-year-old female who presented to [facility] emergency room due to pelvic pain and vaginal discharge was bloody spotting patient was evaluated in emergency room, she was having pelvic pain she was tachycardic she was afebrile and white blood count was normal she states that she had a history of robotic-assisted hysterectomy 3 months ago and since then she had vaginal discharge. She states that in the last 24-36 hours prior to presentation the patient states that she was somewhat intoxicated and had rough intercouse. She believes this precipitated the symptoms. Computed tomography scan of the abdomen and pelvis was done in the emergency room and revealed inflammatory changes in the pelvic area the air in the pelvis, surgical consultation and UTILITY REPAIRER consultation were requested patient was started on IV antibiotics. Patient was seen by UTILITY REPAIRER and surgical service. She started on antibiotics. Dr. Nichols was going to repeat a computed tomography scan of the abdomen and pelvis the following day. However, patient left AGAINST MEDICAL ADVICE. Please refer to chart for any further details Please note that family dictating this discharge summary. I do not see or examine this patient during her hospitalization Patient Condition at Discharge: Stable Plan - Discharge Summary New Discharge Prescriptions: No Action HYDROcodone/APAP 10-325MG [[place] 10-325] 1 tab PO DAILY PRN PRN Reason: Pain Acetaminophen Tab [Tylenol Tab] 500 mg PO Q6H PRN PRN Reason: Pain Cyclobenzaprine [Flexeril] 10 mg PO HS ALPRAZolam [Xanax] 1 mg PO BID PRN PRN Reason: Anxiety Metoprolol Tartrate [Lopressor] 25 mg PO BID PRN PRN Reason: Blood Pressure - High Discharge Medication List ALPRAZolam [Xanax] 1 mg PO BID PRN 02/07/17 [History] Acetaminophen Tab [Tylenol Tab] 500 mg PO Q6H PRN 02/07/17 [History] Cyclobenzaprine [Flexeril] 10 mg PO HS 02/07/17 [History] HYDROcodone/APAP 10-325MG [[place] 10-325] 1 tab PO DAILY PRN 02/07/17 [History] Metoprolol Tartrate [Lopressor] 25 mg PO BID PRN 05/27/17 [History] Follow up Appointment(s)/Referral(s): Jeffery Grande MD [Medical Doctor] - 3 Weeks Hortensia Rose DO [Doctor of Osteopathic Medicine] - 1 Week (call to make an appontment to be seen by Dr Rose this week.) Chantel Nichols MD [Primary Care Provider] - 1-2 days Patient Instructions/Handouts: Metronidazole (By mouth), Levofloxacin (By mouth ), Diverticulitis Diet (GEN) Activity/Diet/Wound Care/Special Instructions: NO INTERCOURSE,VAGINAL REST, NOTHING IN THE VAGINA. Shower daily. Call Dr Rose's office on Monday to make an appointment to be seen this week for a follow up from this hospital visit. Call Dr Rose if you develop increase in abdominal pain, bleeding from you vagina, fever, chills, or any other concerns or questions you may have. Diverticulitis diet. Call Dr Nichols's office on Monday to make an appointment to be seen this week for a follow up from this hospital visit. Call Dr. Grande's office on Monday to make an appointment to be seen in 3 weeks for a follow up from this hospital visit. Discharge Disposition: Left Against Medical Advice
== END 2017-05-28 13:29 | disposition home or self-care (01) ==
LOC: EC 09:14 → 6PED 13:58 → INTOOBSV 13:58 → UNDODISIN 05-28 13:29
PROVIDERS: ADMIT Internal Medicine; ATTEND Internal Medicine
DX: N73.9 Female pelvic inflammatory disease, unspecified (principal); K66.8 Other specified disorders of peritoneum; K57.32 Diverticulitis of large intestine without perforation or abscess without bleeding; N93.9 Abnormal uterine and vaginal bleeding, unspecified; N89.8 Other specified noninflammatory disorders of vagina; I10 Essential (primary) hypertension; F41.9 Anxiety disorder, unspecified; N30.30 Trigonitis without hematuria; G89.29 Other chronic pain; R00.0 Tachycardia, unspecified; F17.210 Nicotine dependence, cigarettes, uncomplicated; E66.9 Obesity, unspecified; Z68.32 Body mass index [BMI] 32.0-32.9, adult; Z90.710 Acquired absence of both cervix and uterus; Z90.722 Acquired absence of ovaries, bilateral; Z90.79 Acquired absence of other genital organ(s); Z79.891 Long term (current) use of opiate analgesic; Z79.899 Other long term (current) drug therapy; K59.00 Constipation, unspecified; Z83.79 Family history of other diseases of the digestive system
CPT/HCPCS: 36415; 74177; 80048; 80053; 81001; 83605; 85025; 87040; 87086; 96365; 96366; 96367; 99285

== ENCOUNTER → 2017-06-22 | Outpatient (CLI) | payer OTHER ==
[2017-06-22 17:24] LABS: Blood Urea Nitrogen 11 mg/dL (7-17)
--- NOTE | 2017-06-22 21:10 | CT ---
EXAMINATION TYPE: CT abdomen pelvis w con DATE OF EXAM: 06/22/2017 COMPARISON: 05/27/2017 HISTORY: Lower abdominal pain, diverticulitis CT DLP: 1191.3 mGycm CONTRAST: CT scan of the abdomen and pelvis is performed with Oral Contrast and with IV Contrast, patient injec eduardo with 100 mL of Isovue 300. FINDINGS: LUNG BASES-: No visible nodule. No infiltrate. LIVER/GB: No calcified gallstones. No space occupying hepatic lesion. Biliary tree is of normal ca liber. PANCREAS: No inflammation. No distinct mass. SPLEEN: No splenic enlargement. No lesion seen. ADRENALS: No nodule. No thickening. KIDNEYS/BLADDER: No hydronephrosis. No nephrolithiasis. No distinct renal mass. Urinary bladder g rossly unremarkable. BOWEL: Normal appendix. Previously noted changes of diverticulitis sigmoid colon have resolved. Norm al bowel caliber. No inflammation. GENITAL ORGANS: Enlarging left ovarian cyst measuring 2 cm versus 1.3 cm previously. Right ovary is unremarkable as is the uterus. LYMPH NODES: No greater than 1cm abdominal or pelvic lymph nodes are appreciated. AORTA: No significant abnormality. OSSEOUS STRUCTURES: No significant abnormality is seen. OTHER: No significant additional abnormality is seen. IMPRESSION: 1. Resolution of sigmoid diverticulitis. No new areas of inflammatory change noted. 2. Enlarging left ovarian cyst. Consider ultrasound correlation.
== END | disposition home or self-care (01) ==
LOC: RADCTMAIN 16:52
PROVIDERS: ATTEND Surgery
DX: N83.202 Unspecified ovarian cyst, left side (principal)
CPT/HCPCS: 82565; 84520; 74177; 36415; Q9967

== ENCOUNTER → 2018-01-08 | Outpatient (CLI) | payer OTHER ==
--- NOTE | 2018-01-09 10:34 | MM ---
Reason for exam: screening (asymptomatic). Last mammogram was performed 2 years and 10 months ago. Physical Findings: A clinical breast exam by your physician is recommended on an annual basis and results should be correlated with mammographic findings. MG Screening Mammo w CAD Bilateral CC and MLO view(s) were taken. Prior study comparison: February 26, 2015, bilateral MG screening mammo w CAD. July 13, 2012, bilateral digital screening mammo w/CAD. There are scattered fibroglandular densities. Finding: There is a 8 mm circumscribed oval mass in the lower quadrant, anterior position of the left breast. Developing asymmetry middle posterior depth upper outer quadrant. New finding and more defined since July 13, 2012 and February 26, 2015. ASSESSMENT: Incomplete: need additional imaging evaluation, BI-RAD 0 RECOMMENDATION: Special view mammogram of the left breast. If lesion persists on supplemental views, image directed ultrasound is recommended. [facility] will attempt to contact patient to return for supplemental views and ultrasound if indicated.
== END ==
LOC: RADMAMWWP 07:54
PROVIDERS: ATTEND Internal Medicine
DX: Z12.31 Encounter for screening mammogram for malignant neoplasm of breast (principal)
CPT/HCPCS: 77067

== ENCOUNTER → 2018-04-06 | Outpatient (CLI) | payer OTHER ==
--- NOTE | 2018-04-06 12:16 | MM ---
Reason for exam: additional evaluation requested from abnormal screening. Last mammogram was performed 3 months ago. Physical Findings: Nurse did not find any significant physical abnormalities on exam. MG Work Up Mamm w CAD LT Spot compression CC, spot compression MLO, and ML view(s) were taken of the left breast. Prior study comparison: January 08, 2018, bilateral MG screening mammo w CAD. February 26, 2015, bilateral MG screening mammo w CAD. Density persists lower outer left breast. Ultrasound recommended. These results were verbally communicated with the patient and result sheet given to the patient on 04/06/18. ASSESSMENT: Incomplete: need additional imaging evaluation, BI-RAD 0 RECOMMENDATION: Ultrasound of the left breast.
--- NOTE | 2018-04-06 12:17 | USB ---
Reason for exam: additional evaluation requested from abnormal screening. US Breast Workup Limited LT Left limited breast ultrasound including focal area of concern, retroareolar and axilla demonstrates a 0.8 x 0.9 x 0.3cm oval, mixed lesion at 5 o'clock. These results were verbally communicated with the patient and result sheet given to the patient on 04/06/18. ASSESSMENT: Probably benign, BI-RAD 3 RECOMMENDATION: Follow-up diagnostic mammogram and ultrasound of the left breast in 6 months.
== END | disposition home or self-care (01) ==
LOC: RADMAMWWP 10:25
PROVIDERS: ATTEND Internal Medicine
DX: R92.8 Other abnormal and inconclusive findings on diagnostic imaging of breast (principal)
CPT/HCPCS: 77065

== ENCOUNTER → 2018-10-23 | Outpatient (CLI) | payer OTHER ==
--- NOTE | 2018-10-23 14:11 | XR ---
Lumbosacral spine HISTORY: Chronic back pain 5 views of the lumbosacral spine correlated to prior exam 07/30/2013 There is no significant interval change. No evident spondylolysis. Lumbar vertebral bodies show prese rved height and bone mineralization. There is multilevel spondylosis. Loss of disc height is greatest at L4-5. Sclerosis present in the posterior elements is compatible with facet arthropathy. Minimal r etrolisthesis grade 1 L4-5. impression: Degenerative disc disease, facet arthropathy.
== END | disposition home or self-care (01) ==
LOC: RADXRMAIN 09:34
PROVIDERS: ATTEND Internal Medicine
DX: M51.36 Other intervertebral disc degeneration, lumbar region (principal); M46.96 Unspecified inflammatory spondylopathy, lumbar region
CPT/HCPCS: 72110

== ENCOUNTER → 2018-10-29 | Outpatient (CLI) | payer OTHER ==
--- NOTE | 2018-10-29 09:46 | MM ---
Reason for exam: follow-up at short interval from prior study. Last mammogram was performed 7 months ago. Physical Findings: Nurse did not find any significant physical abnormalities on exam. MG Diagnostic Mammo LT w CAD CC and MLO view(s) were taken of the left breast. Prior study comparison: April 06, 2018, left breast MG work up mamm w CAD LT. January 08, 2018, bilateral MG screening mammo w CAD. There are scattered fibroglandular densities. There is a stable middle depth left mass at 5 o'clock retrospectively unchanged from 2015. No suspicious abnormality. No significant new findings when compared with previous films. These results were verbally communicated with the patient and result sheet given to the patient on 10/29/18. ASSESSMENT: Benign, BI-RAD 2 RECOMMENDATION: Return to routine screening mammogram schedule for both breasts. Back on schedule for January 2019.
--- NOTE | 2018-10-29 09:48 | USB ---
Reason for exam: follow-up at short interval from prior study. US Breast Limited LT Left limited breast ultrasound including focal area of concern, retroareolar and axilla demonstrates a 0.5 x 0.8 x 0.3cm mixed lesion at 5 o'clock prior measured 0.3 x 0.8 x 0.9cm. This appears stable mammographically back to 2014. These results were verbally communicated with the patient and result sheet given to the patient on 10/29/18. ASSESSMENT: Benign, BI-RAD 2 RECOMMENDATION: Return to routine screening mammogram schedule for both breasts. Back on schedule.
== END | disposition home or self-care (01) ==
LOC: RADMAMWWP 08:07
PROVIDERS: ATTEND Internal Medicine
DX: R92.8 Other abnormal and inconclusive findings on diagnostic imaging of breast (principal)
CPT/HCPCS: 77065

== ENCOUNTER → 2018-11-20 | Outpatient (CLI) | payer OTHER ==
--- NOTE | 2018-11-20 14:44 | XR ---
Left knee HISTORY: Pain and swelling 3 views of the left knee There is joint space loss and marginal spurring at the medial compartment. Suprapatellar joint effusi on is suspected, there is increased attenuation present. Alignment and bone mineralization are normal . IMPRESSION: Osteoarthritis.
== END | disposition home or self-care (01) ==
LOC: RADXRMAIN 10:25
PROVIDERS: ATTEND Internal Medicine
DX: M17.12 Unilateral primary osteoarthritis, left knee (principal)

== ENCOUNTER → 2019-01-09 | Outpatient (CLI) | payer OTHER ==
--- NOTE | 2019-01-10 09:10 | MM ---
Reason for exam: screening (asymptomatic). Last mammogram was performed 2 months ago. Physical Findings: A clinical breast exam by your physician is recommended on an annual basis and results should be correlated with mammographic findings. MG Screening Mammo w CAD Bilateral CC and MLO view(s) were taken. Prior study comparison: October 29, 2018, left breast MG diagnostic mammo LT w CAD. April 06, 2018, left breast MG work up mamm w CAD LT. There are scattered fibroglandular densities. No suspicious abnormality. No significant changes when compared with prior studies. ASSESSMENT: Negative, BI-RAD 1 RECOMMENDATION: Routine screening mammogram of both breasts in 1 year.
== END | disposition home or self-care (01) ==
LOC: RADMAMWWP 08:16
PROVIDERS: ATTEND Internal Medicine
DX: Z12.31 Encounter for screening mammogram for malignant neoplasm of breast (principal)
CPT/HCPCS: 77067

== ENCOUNTER → 2019-02-01 | Outpatient (CLI) | payer OTHER ==
--- NOTE | 2019-02-01 08:30 | MR ---
EXAMINATION TYPE: MR knee LT wo con DATE OF EXAM: 02/01/2019 COMPARISON: Outside left knee x-ray November 20, 2018. HISTORY: Left knee pain per order. Pain and swelling for 5 months per patient. TECHNIQUE: Multiplanar, multisequence images of the knee is performed without IV contrast. FINDINGS: MEDIAL MENISCUS: Anterior and posterior horns are intact without tear. LATERAL MENISCUS: Anterior and posterior horns are intact without tear. CRUCIATE LIGAMENTS: The anterior and posterior cruciate ligaments are intact and unremarkable. COLLATERAL LIGAMENTS: The medial collateral ligament and lateral collateral ligament complex are inta ct and unremarkable. EXTENSOR MECHANISM: Visualized quadriceps and patellar tendons are intact. EFFUSION: Fairly moderate size suprapatellar joint effusion. POPLITEAL CYST: No popliteal/lopez cyst. TRICOMPARTMENT SPACES: Mild to moderate narrowing medial tibiofemoral compartment with minimal spurri ng. Mild narrowing patellofemoral compartment. CARTILAGE: Some cartilaginous loss medial tibiofemoral compartment. No significant chondromalacia pat floridalma. BONE MARROW SIGNAL: Ovoid 7 mm lesion in posterior tibia coronal image 20 favored as enchondroma or o ther nonaggressive etiology. OTHER: No additional significant abnormality is appreciated. IMPRESSION: 1. No meniscal or ligamentous tear is seen. 2. Mild to borderline moderate tricompartment degenerative changes most prominent medial tibiofemoral compartment presumed product of osteoarthritis. 3. Moderate-sized suprapatellar joint effusion.
== END | disposition home or self-care (01) ==
LOC: RADMRIMAIN 07:42
PROVIDERS: ATTEND Orthopaedic Surgery
DX: M17.12 Unilateral primary osteoarthritis, left knee (principal)

== ENCOUNTER → 2019-09-04 | Outpatient (CLI) | payer OTHER ==
--- NOTE | 2019-09-04 13:05 | XR ---
EXAMINATION TYPE: XR foot complete LT DATE OF EXAM: 09/04/2019 COMPARISON: NONE HISTORY: Pain TECHNIQUE: Three views are submitted. FINDINGS: The osseous structures are intact. There is no acute fracture or dislocation. Joint spaces are p reserved. Calcaneal spurs are noted most notable involving the plantar surface. Correlate for pes roselia nus deformity. Hammertoe deformities noted. IMPRESSION: 1. Small calcaneal spurs.
== END | disposition home or self-care (01) ==
LOC: RADXRMAIN 11:53
PROVIDERS: ATTEND Internal Medicine
DX: M77.32 Calcaneal spur, left foot (principal)

== ENCOUNTER → 2019-09-19 | Outpatient (CLI) | payer OTHER ==
--- NOTE | 2019-09-19 08:54 | US ---
EXAMINATION TYPE: US abdomen limited DATE OF EXAM: 09/19/2019 COMPARISON: NONE CLINICAL HISTORY: R94.5 Abnormal results of liver function studies. elevated liver enzymes EXAM MEASUREMENTS: Liver Length: 17.5 cm Gallbladder Wall: 0.3 cm CBD: 0.5 cm Right Kidney: 10.8 x 4.5 x 5.1 cm Pancreas: Obscured by bowel gas Liver: attenuating, heterogeneous Gallbladder: no evidence of stones Evidence for sonographic Atwood's sign: no CBD: appears wnl Right Kidney: no evidence of hydronephrosis or mass There is no ascites. IMPRESSION: Findings suggest hepatic steatosis, hepatocellular disease, exam is limited
== END | disposition home or self-care (01) ==
LOC: RADUSWWP 08:09
PROVIDERS: ATTEND Internal Medicine
DX: R94.5 Abnormal results of liver function studies (principal)
CPT/HCPCS: 76705

== ENCOUNTER → 2019-12-27 | Outpatient (CLI) | payer OTHER ==
--- NOTE | 2019-12-29 09:44 | MR ---
EXAMINATION TYPE: MR lumbar spine wo/w con DATE OF EXAM: 12/27/2019 COMPARISON: Lumbar spine x-ray October 23, 2018 HISTORY: LBP, RLE weakness. DDD with radiculopathy per order. TECHNIQUE: Multiplanar, multisequence images of the lumbar spine is performed without and with IV contrast, util izing 9.5 mL intravenous Gadavist FINDINGS: Sagittal images of the lumbar spine show vertebral body heights and alignment to remain sat isfactory. Multilevel disc desiccation is present. There is mild to moderate disc space narrowing and anterior spurring L4-L5 level. The conus medullaris is normal in position and signal ending inferio r L1 level. The bone marrow signal intensity is within normal limits. No suspicious postcontrast enh ancement. Mild multilevel anterior spurring. Axial images show T12-L1, L1-L2, and L2-L3 levels all to appear within normal limits. Axial images at the L3-L4 level show mild to moderate facet degenerative changes and ligamentum flavu m hypertrophy along with mild broad disc bulge minimally effacing the anterior thecal sac, mild right -sided anterior inferior neural foraminal narrowing. Axial images at L4-L5 level due to mild/moderate facet degenerative changes bilaterally. There is mil d/moderate broad-based posterior disc protrusion effacing the anterior thecal sac and causing mild le ft greater than right bilateral anterior inferior neural foraminal narrowing. Axial images at the L5-S1 level show moderate facet degenerative changes bilaterally. Spinal canal is preserved. Patent bilateral neural foramina. Paraspinal muscle bulk is maintained. IMPRESSION: Multilevel degenerative changes mid to lower lumbar spine as detailed above. No definitiv e encroachment exiting right sided nerve to account for patient's right-sided radiculopathy type symp toms however.
== END | disposition home or self-care (01) ==
LOC: RADMRIMAIN 16:57
PROVIDERS: ATTEND Physical Medicine & Rehabilitation
DX: M99.73 Connective tissue and disc stenosis of intervertebral foramina of lumbar region (principal); M51.26 Other intervertebral disc displacement, lumbar region; M47.816 Spondylosis without myelopathy or radiculopathy, lumbar region
CPT/HCPCS: 72158; A9585

== ENCOUNTER → 2020-04-07 | Outpatient (CLI) | payer OTHER ==
--- NOTE | 2020-04-10 13:22 | MM ---
Reason for exam: screening (asymptomatic). Last mammogram was performed 1 year and 3 months ago. Physical Findings: A clinical breast exam by your physician is recommended on an annual basis and results should be correlated with mammographic findings. MG Screening Mammo w CAD Bilateral CC and MLO view(s) were taken. Prior study comparison: January 09, 2019, bilateral MG screening mammo w CAD. October 29, 2018, left breast MG diagnostic mammo LT w CAD. There are scattered fibroglandular densities. There is chronic nodularity bilaterally. No significant changes when compared with prior studies. ASSESSMENT: Benign, BI-RAD 2 RECOMMENDATION: Routine screening mammogram of both breasts in 1 year.
== END | disposition home or self-care (01) ==
LOC: RADMAMWWP 13:22
PROVIDERS: ATTEND Internal Medicine
DX: Z12.31 Encounter for screening mammogram for malignant neoplasm of breast (principal)
CPT/HCPCS: 77067

== ENCOUNTER → 2020-09-10 | Outpatient (CLI) | payer OTHER ==
--- NOTE | 2020-09-12 18:03 | MR ---
EXAMINATION TYPE: MR knee LT wo con DATE OF EXAM: 09/10/2020 COMPARISON: 02/01/2019 HISTORY: 50-year-old female Left knee pain and swelling for 1 year. TECHNIQUE: Multiplanar, multisequence imaging of the left knee is performed without IV contrast. FINDINGS: ACL, PCL, MCL, and LCL complex are intact. Inner margin fraying and degenerative signal involving the body of the medial meniscus. Slight extrus ion of the meniscal body. Moderate thinning of medial compartment articular cartilage volume similar to slightly progressed fro m prior. The lateral meniscus is intact. Marginal spurring in the lateral compartment with overall preserved a rticular cartilage volume. Moderate irregular cartilage loss focally along the mid patella articular cartilage similar to prior exam. Extensor mechanism is intact. Mild anterior soft tissue swelling. Small knee joint effusion, probably physiologic. There is a trace early 6 mm Pearson's cyst. Normal popliteal artery anatomy and mild generalized muscle atrophy. No suspicious bone marrow replac ement. IMPRESSION: 1. Some degenerative signal involving the body of the medial meniscus with inner margin fraying. Slig ht extrusion of the medial meniscal body seems to be due to moderate thinning of medial compartment a rticular cartilage volume. 2. Redemonstrated are moderate thickness focal irregular cartilage loss along the mid patella. 3. No collateral/cruciate ligament tear. 4. Mild anterior soft tissue swelling. Trace knee joint effusion.
== END | disposition home or self-care (01) ==
LOC: RADMRIMAIN 13:07
PROVIDERS: ATTEND Orthopaedic Surgery
DX: M23.332 Other meniscus derangements, other medial meniscus, left knee (principal); M94.8X6 Other specified disorders of cartilage, lower leg; M79.89 Other specified soft tissue disorders

== ENCOUNTER 2020-12-11 08:29 | Day surgery (SDC) | payer OTHER ==
[2020-12-09 15:30] VITALS: BMI 35.9
--- NOTE | 2020-12-10 17:19 | HP ---
HISTORY AND PHYSICAL CHIEF COMPLAINT: Left knee pain. HISTORY OF PRESENT ILLNESS: The patient is a 50-year-old female who presents with progressive left knee pain for the past several months, worsening recently. She notes medial pain that increases with activity. She notes giving way. She notes it wakes her at night. She has tried bracing, anti-inflammatories, in addition to a cortisone injection. She notes it bothers her daily. PAST MEDICAL HISTORY: Significant for type 2 diabetes along with anxiety. PAST SURGICAL HISTORY: Significant for hysterectomy and tubal ligation. CURRENT MEDICATIONS: Antivert, hydrocodone, metformin, Xanax, ibuprofen. ALLERGIES: SHE DENIES DRUG ALLERGIES. FAMILY HISTORY: Significant for diabetes. SOCIAL HISTORY: Significant for one half pack per day tobacco use. REVIEW OF SYSTEMS: Sixteen-point review of systems is otherwise reviewed and noncontributory. PHYSICAL EXAMINATION: The patient is approximately 5 feet 5 inches, 220 pounds of endomorphic habitus. HEENT exam is nonfocal. Neck is supple. She has painless passive motion of her left hip. Straight-leg raise is negative. Active motion of left knee: Minus 4 to 130 degrees of flexion. She is tender about the medial joint line. She has a trace effusion. Collaterals are stable, Clau negative. Tobi's elicits medial pain. She has an antalgic gait pattern. Her distal neurovascular exam appears intact in the left lower extremity. MRI report left knee from 09/10/2020 shows evidence of medial compartment degenerative changes along with a medial meniscal tear. Patellar cartilage defects were also noted. IMPRESSION: 1. Left knee internal derangement with symptomatic medial meniscal tear. 2. Left knee moderate medial compartment osteoarthrosis. 3. Increased body mass index. RECOMMENDATIONS: I talked to the patient at length regarding her condition and treatment options. At this point she is having persistent pain and mechanical symptoms despite previous conservative measures. After thorough discussion, she elected to proceed with surgery. We will plan to proceed with arthroscopic evaluation, possible partial medial meniscectomy and distal medial femoral chondrectomy. We will likely perform that as an outpatient procedure. Risks and benefits were discussed at length in layman's terms. MMODL / IJN: [id number] /
[~2020-12-11 08:29] MED LIST: DEXAMETHASONE SOD PHOSPHATE 4 MG/ML 1 ML VIAL IV ONE; HYDROmorphone 0.5 MG/0.5 ML SYRINGE IVP PRN; MIDAZOLAM 2 MG/2 ML VIAL IV PRN; ONDANSETRON 4 MG/2 ML VIAL IVP ONE; SCOPOLAMINE 1.5MG/72HR PATCH TRANSDERM ONE
[2020-12-11 09:03] VITALS: RESP 16
[2020-12-11] MEDS: LACTATED RINGERS 1,000 ML IV SCH ×2 (09:06→09:52)
[2020-12-11 09:20] LABS: Glucose,Whole Blood 123 mg/dL (75-99)
[2020-12-11] MEDS ORDERED: SUCCINYLCHOLINE CHLORIDE 100 MG/5 ML SYR IV ONE (09:51)
[2020-12-11] MEDS ORDERED: MIDAZOLAM 2 MG/2 ML VIAL ONE (09:51)
[2020-12-11] MEDS ORDERED: fentaNYL (PF) 50 MCG/ML 2 ML AMP ONE (09:51)
[2020-12-11] MEDS ORDERED: PROPOFOL 10 MG/ML 20 ML VIAL IV ONE (09:51)
[2020-12-11] MEDS ORDERED: EPINEPHrine (PF) 1 ML in SODIUM CHLORIDE 0.9% IRRIGATIO 3,000 ML IRRIGATION ONE ×4 (10:05)
--- NOTE | 2020-12-11 10:29 | P.OP ---
Date of Procedure: 12/11/20 Preoperative Diagnosis: Left knee internal derangement Postoperative Diagnosis: Left knee posterior medial meniscal tear Procedure(s) Performed: Left knee arthroscopic partial medial meniscectomy Anesthesia: VALENTINAA Surgeon: Tristen Rubio Estimated Blood Loss (ml): 10 Pathology: none sent Condition: stable Disposition: PACU Indications for Procedure: The patient's a 50-year-old female presents with progressive left knee pain and mechanical symptoms despite previous conservative measures. A discussion of the risks and benefits of operative intervention versus continued conservative measures was made with patient. She opted to proceed with surgery. Operative risks to include infection, neurovascular injury, development of blood clots, possible incomplete resolution of symptoms, possible worsening symptoms and he for subsequent procedures was discussed. Informed consent was obtained. Operative Findings: As below Description of Procedure: The patient was brought to the operating room, and after induction of general anesthesia examined the left knee. Collaterals were stable, Clau was negative, and posterior drawer was negative. The left lower extremity was prepped and draped in a normal fashion. A superior lateral portal was made through a 3 mm skin incision superior and lateral to the patella. This was used for outflow. A lateral portal was made through a 5 mm vertical skin incision lateral to the patella tendon above the joint line. Diagnostic arthroscopy was performed. On inspection of the medial compartment, a horizontal tear involving the posterior horn of the medial meniscus in the white-white junction was noted. This was debrided back to stable base with straight baskets and a motorized shaver. Grade 2 chondral changes were noted along the posterior medial femoral condyle. On inspection of the notch, the anterior cruciate ligament appeared to be intact. On inspection of the lateral compartment, no significant meniscal or cartilage pathology was noted. On inspection of the patellofemoral articulation, there is chondral fibrillation however no loose chondral fragments.. The gutters were clear debris. The knee was then thoroughly irrigated. The portals were closed with Steri-Strips. A sterile dressing was applied in addition to a compression stocking. The patient was awoken from general anesthesia and transferred to recovery room in good condition. Blood l oss was estimated at 10 mL. No complications were incurred.
[2020-12-11 10:39] VITALS: TEMP 96.9
[2020-12-11] MEDS ORDERED: KETOROLAC 15 MG/ML 1 ML VIAL ONE (10:43)
[2020-12-11] MEDS ORDERED: KETOROLAC 15 MG/ML 1 ML VIAL IVP ONE (10:45)
[2020-12-11 11:49] VITALS: BP 119/70; PULSE 88
== END 2020-12-11 12:08 | disposition home or self-care (01) ==
LOC: OR 08:29
PROVIDERS: ATTEND Orthopaedic Surgery
DX: M23.204 Derangement of unspecified medial meniscus due to old tear or injury, left knee (principal); M17.12 Unilateral primary osteoarthritis, left knee; E11.9 Type 2 diabetes mellitus without complications; J44.9 Chronic obstructive pulmonary disease, unspecified; F17.210 Nicotine dependence, cigarettes, uncomplicated; F41.9 Anxiety disorder, unspecified; Z90.710 Acquired absence of both cervix and uterus; Z98.51 Tubal ligation status; Z97.2 Presence of dental prosthetic device (complete) (partial); Z83.3 Family history of diabetes mellitus; Z84.89 Family history of other specified conditions; Z79.84 Long term (current) use of oral hypoglycemic drugs; Z79.1 Long term (current) use of non-steroidal anti-inflammatories (NSAID); Z79.891 Long term (current) use of opiate analgesic; Z79.899 Other long term (current) drug therapy
CPT/HCPCS: 29881; J2250; J1100; J0690; J2405; J0171; J3010; J1885; J0330; J2704; J1170

== ENCOUNTER → 2021-05-27 | Outpatient (CLI) | payer OTHER ==
--- NOTE | 2021-05-28 13:52 | MM ---
Reason for exam: screening (asymptomatic). Last mammogram was performed 1 year and 2 months ago. History: Patient is postmenopausal. Physical Findings: A clinical breast exam by your physician is recommended on an annual basis and results should be correlated with mammographic findings. MG 3D Screening Mammo W/Cad Bilateral CC and MLO view(s) were taken. Prior study comparison: April 07, 2020, bilateral MG screening mammo w CAD. January 09, 2019, bilateral MG screening mammo w CAD. There are scattered fibroglandular densities. Chronic bilateral nodularity from moles. Mole markers are utilized. No significant changes when compared with prior studies. ASSESSMENT: Negative, BI-RAD 1 RECOMMENDATION: Routine screening mammogram of both breasts in 1 year.
== END | disposition home or self-care (01) ==
LOC: RADMAMWWP 15:23
PROVIDERS: ATTEND Internal Medicine
DX: Z12.31 Encounter for screening mammogram for malignant neoplasm of breast (principal); Z78.0 Asymptomatic menopausal state
CPT/HCPCS: 77063; 77067

== ENCOUNTER → 2021-07-02 | Outpatient (CLI) | payer OTHER ==
--- NOTE | 2021-07-02 15:38 | US ---
EXAMINATION TYPE: US carotid duplex BILAT DATE OF EXAM: 07/02/2021 COMPARISON: NONE CLINICAL HISTORY: G45.9 TRANSIENT CEREBRAL ISCHEMIC ATTACK, UNSPECIFIED. TIA EXAM MEASUREMENTS: RIGHT: Peak Systolic Velocity (PSV) cm/sec ----- Right CCA: 67.7 ----- Right ICA: 95.3 ----- Right ECA: 73.5 ICA/CCA ratio: 1.4 RIGHT: End Diastole cm/sec ----- Right CCA: 21.2 ----- Right ICA: 43 ----- Right ECA: 19.8 LEFT: Peak Systolic Velocity (PSV) cm/sec ----- Left CCA: 54.8 ----- Left ICA: 83.7 ----- Left ECA: 72.1 ICA/CCA ratio: 1.5 LEFT: End Diastole cm/sec ----- Left CCA: 16.9 ----- Left ICA: 37.2 ----- Left ECA: 19.8 VERTEBRALS (direction of flow): Right Vertebral: Antegrade Left Vertebral: Antegrade Rhythm: Normal No significant stenosis seen Grayscale images show no significant focal plaque. IMPRESSION: No hemodynamically significant stenosis in either internal carotid artery. Criteria for Assigning % of Stenosis / Diameter reduction (Estimation based on the indirect measurements of the internal carotid artery velocities (ICA PSV). 1. Normal (no stenosis)=ICA PSV < 125 cm/s: ratio < 2.0: ICA EDV<40 cm/s. 2. Less than 50% stenosis=ICA PSV < 125 cm/s: ratio < 2.0: ICA EDV<40 cm/s. 3. 50 to 69% stenosis=ICA PSV of 125 to 230 cm/s: ration 2.0 ? 4.0: ICA EDV 40-100 cm/s. 4. Greater than 70% stenosis to near occlusion= ICA PSV > 230 cm/s: ratio > 4.0: ICA EDV > 100 cm/s. 5. Near occlusion= ICA PSV velocities may be low or undetectable: variable ratio and ICA EDV. 6. Total occlusion=unable to detect flow.
== END | disposition home or self-care (01) ==
LOC: RADUSWWP 13:27
PROVIDERS: ATTEND Internal Medicine
DX: G45.9 Transient cerebral ischemic attack, unspecified (principal)
CPT/HCPCS: 93880

== ENCOUNTER → 2022-05-19 | Outpatient (CLI) | payer MEDICARE, OTHER ==
[2022-05-19 14:58] LABS: Basophils # (A) 0.05 X 10*3/uL (0.00-0.10); Basophils % (A) 0.9 %; Eosinophils # (A) 0.15 X 10*3/uL (0.04-0.35); Eosinophils % (A) 2.7 %; HCT 47.1 % (37.2-46.3); HGB 15.3 g/dL (12.0-15.0); Immature Grans, Automated 0.4 %; Lymphocytes # (A) 1.85 X 10*3/uL (0.90-5.00); Lymphocytes % (A) 33.8 %; MCH 30.4 pg (27.0-32.0); MCHC 32.5 g/dL (32.0-37.0); MCV 93.5 fL (80.0-97.0); Mean Platelet Volume 11.5 fL (9.5-12.2); Monocytes # (A) 0.52 X 10*3/uL (0.20-1.00); Monocytes % (A) 9.5 %; NRBC Per 100 WBC 0 /100 WBCS (0.0-0.0); Neutrophils # (A) 2.89 X 10*3/uL (1.80-7.70); Neutrophils % (A) 52.7 %; Platelet Count 205 X 10*3/uL (140-440); RBC 5.04 X 10*6/uL (4.10-5.20); RDW 12.8 % (11.5-14.5); WBC 5.48 X 10*3/uL (4.50-10.00)
[2022-05-19 15:36] LABS: African American GFR (CKD) 91.6 (60.0-200.0); Anion Gap 8.5 mmol/L (10.00-18.00); BUN/Creat Ratio 17.12 Ratio (12.00-20.00); Blood Urea Nitrogen 14.6 mg/dL (9.0-27.0); Calcium 9.3 mg/dL (8.7-10.3); Carbon Dioxide 28.7 mmol/L (20.0-27.5); Potassium 4.2 mmol/L (3.5-5.5)
[2022-05-19 16:07] LABS: INR 0.96 (0.90-1.11); Prothrombin Time 10.9 sec (9.9-11.9)
== END | disposition home or self-care (01) ==
LOC: LABWHC1 10:48
PROVIDERS: ATTEND Orthopaedic Surgery
DX: Z01.818 Encounter for other preprocedural examination (principal); M17.12 Unilateral primary osteoarthritis, left knee; Z22.322 Carrier or suspected carrier of Methicillin resistant Staphylococcus aureus
CPT/HCPCS: 36415; 80048; 85025; 85610; 87070; 93005

== ENCOUNTER → 2022-06-06 | Outpatient (CLI) | payer MEDICARE, OTHER ==
[2022-06-06 15:30] LABS: Basophils # (A) 0.05 X 10*3/uL (0.00-0.10); Eosinophils # (A) 0.19 X 10*3/uL (0.04-0.35); Eosinophils % (A) 3.6 %; HCT 43.3 % (37.2-46.3); HGB 14.4 g/dL (12.0-15.0); Immature Grans, Automated 0.2 %; Lymphocytes # (A) 1.63 X 10*3/uL (0.90-5.00); MCH 30.8 pg (27.0-32.0); MCHC 33.3 g/dL (32.0-37.0); MCV 92.5 fL (80.0-97.0); Mean Platelet Volume 10.7 fL (9.5-12.2); Monocytes # (A) 0.59 X 10*3/uL (0.20-1.00); Monocytes % (A) 11.2 %; NRBC Per 100 WBC 0 /100 WBCS (0.0-0.0); Neutrophils # (A) 2.79 X 10*3/uL (1.80-7.70); Platelet Count 202 X 10*3/uL (140-440); RBC 4.68 X 10*6/uL (4.10-5.20); RDW 12.8 % (11.5-14.5); WBC 5.26 X 10*3/uL (4.50-10.00)
[2022-06-06 15:46] LABS: INR 0.95 (0.90-1.11); Prothrombin Time 10.8 sec (9.9-11.9)
[2022-06-06 16:17] LABS: African American GFR (CKD) 75.7 (60.0-200.0); BUN/Creat Ratio 15.73 Ratio (12.00-20.00); Blood Urea Nitrogen 15.7 mg/dL (9.0-27.0); Calcium 9.2 mg/dL (8.7-10.3); Carbon Dioxide 28.3 mmol/L (20.0-27.5); Non-African American GFR(CKD) 65.3 (60.0-200.0); Potassium 4.4 mmol/L (3.5-5.5)
== END | disposition home or self-care (01) ==
LOC: LABPAT 11:41
PROVIDERS: ATTEND Orthopaedic Surgery
DX: Z01.812 Encounter for preprocedural laboratory examination (principal); M17.12 Unilateral primary osteoarthritis, left knee
CPT/HCPCS: 80048; 85025; 85610

== ENCOUNTER 2022-06-24 07:15 | Day surgery (SDC) | payer MEDICARE, OTHER ==
[2022-06-17 08:46] VITALS: BMI 35.6
--- NOTE | 2022-06-23 08:17 | P.HPOR ---
History of Present Illness H&P Date: 06/23/22 Chief Complaint: Left knee pain The patient's a 52-year-old female who presents with progressive left knee pain for the past several years worsening recently. She's having pain with weightbearing activity and at night. She tried medications in addition to injections with only partial temporary relief. She had a previous arthroscopy in 2020. Review of Systems As per HPI Past Medical History Past Medical History: Asthma, Diabetes Mellitus, Hypertension, Musculoskeletal Disorder, Osteoarthritis (OA), Skin Disorder Additional Past Medical History / Comment(s): Frequent vertigo, hx rapid heart rate at times, 2 BULGING DISCS IN BACK, ?TIA >year ago, had some left sided face tightening, per patient Carotid Doppler WNL, Rosacea. History of Any Multi-Drug Resistant Organisms: None Reported Past Surgical History: Hysterectomy, Orthopedic Surgery, Tubal Ligation Additional Past Surgical History / Comment(s): Teeth pulled, bilateral carpal tunnel, left knee arthoscopy. Past Anesthesia/Blood Transfusion Reactions: No Reported Reaction Past Psychological History: Anxiety Smoking Status: Former smoker Past Alcohol Use History: Occasional Additional Past Alcohol Use History / Comment(s): Quit smoking 2.5 yrs ago, smoked <1ppd since age 16. Past Drug Use History: None Reported - Past Family History Mother Family Medical History: No Reported History Medications and Allergies Home Medications Medication Instructions Recorded Confirmed Type ALPRAZolam [Xanax] 1 mg PO BID PRN 02/07/17 06/17/22 History Acetaminophen Tab [Tylenol Tab] 500 mg PO Q6H PRN 02/07/17 06/17/22 History Albuterol Sulfate [Proair Hfa] 1 - 2 puff INHALATION Q6HR PRN 12/09/20 06/17/22 History Metoprolol Succinate [Toprol XL] 50 mg PO DAILY 12/09/20 06/17/22 History metFORMIN HCL [Glucophage] 500 mg PO QAM 12/09/20 06/17/22 History Aspirin 81 mg PO DAILY 05/19/22 06/17/22 History FLUoxetine HCL [PROzac] 10 mg PO DAILY 05/19/22 06/17/22 History Meloxicam [Mobic] 15 mg PO DAILY 05/19/22 06/17/22 History Allergies Allergy/AdvReac Type Severity Reaction Status Date / Time No Known Allergies Allergy Verified 06/17/22 08:31 Physical Examination - Knee left Appearance: effusion Effusion grade: grade 1 Varus alignment in stance: 5 degrees Tenderness with palpation: medial Pain: throughout ROM Gait: limping ROM: extension: -10 degrees ROM: flexion: 110 degrees Crepitus with motion: Yes Strength: extension: 5/5 Strength: flexion: 5/5 Meniscal tests: medial meniscal tests: positive, medial joint line pain: positive Results The patient is a well-developed well-nourished female approximately 5 foot 5, 208 pounds of endomorphic habitus. HEENT exam is nonfocal, neck supple. She has painless passive motion left hip. Straight leg raise is negative. Her distal neurovascular appears intact in the left lower extremity. - Diagnostic results Knee x-ray: image reviewed (3 views of the left knee obtain the office shows severe medial compartment arthritis with joint space narrowing and subchondral sclerosis.) Assessment and Plan Assessment: Left knee severe medial compartment osteoarthrosis Obesity [id number] diabetes Plan: I talked to the patient length regarding her condition along with treatment options. At this point she is quite symptomatic and limited because of pain related to her osteoarthrosis despite conservative measures. After thorough discussion she opted to proceed with surgery. We will plan to proceed with left total knee arthroplasty. We will institute DVT prophylaxis postoperatively. Risks and benefits were discussed at length in layman's terms.
[~2022-06-24 07:15] MED LIST changes: +ACETAMINOPHEN TAB 500 MG TAB PO PRN; +MELOXICAM 7.5 MG TAB PO PRN; +SCOPOLAMINE 1 MG/72 HR PATCH TRANSDERM ONE; -SCOPOLAMINE 1.5MG/72HR PATCH TRANSDERM ONE; +TRANEXAMIC ACID IN NACL,ISO-OS 1,000 MG in SALINE 1 100ML.BAG IVPB PRN
[2022-06-24] MEDS: LACTATED RINGERS 1,000 ML IV SCH (07:43)
[2022-06-24 07:56] LABS: Glucose,Whole Blood 133 mg/dL (70-110)
[2022-06-24] MEDS ORDERED: fentaNYL (PF) 50 MCG/ML 2 ML AMP IVP ONE (08:42)
[2022-06-24] MEDS ORDERED: MIDAZOLAM 2 MG/2 ML VIAL IVP ONE (08:42)
[2022-06-24] MEDS ORDERED: ROCURONIUM 10 MG/ML (5 ML VIAL) IV ONE (10:09)
[2022-06-24] MEDS ORDERED: TRANEXAMIC ACID IN NACL,ISO-OS 1,000 MG/100 ML BAG ONE (10:09)
[2022-06-24] MEDS ORDERED: ALBUTEROL INHALER 60 PUFF/8 GM INHALER (MHU) INHALATION ONE (10:09)
[2022-06-24] MEDS ORDERED: fentaNYL (PF) 50 MCG/ML 2 ML AMP ONE (10:09)
[2022-06-24] MEDS ORDERED: PROPOFOL 10 MG/ML 20 ML VIAL IV ONE (10:09)
[2022-06-24] MEDS ORDERED: NEOSTIGMINE 1 MG/ML 10 ML VIAL ONE (10:09)
[2022-06-24] MEDS ORDERED: MIDAZOLAM 2 MG/2 ML VIAL ONE (10:09)
[2022-06-24] MEDS ORDERED: SUCCINYLCHOLINE CHLORIDE 200 MG/10 ML VIAL IV ONE (10:09)
[2022-06-24] MEDS ORDERED: GLYCOPYRROLATE 0.2 MG/ML 2 ML VIAL ONE (10:09)
[2022-06-24] MEDS ORDERED: HYDROmorphone (PF) 1 MG/ML ONE (10:09)
[2022-06-24] MEDS ORDERED: LIDOCAINE 2% INJ 20 MG/ML (2 ML VIAL) ONE (10:09)
[2022-06-24] MEDS ORDERED: LACTATED RINGERS 1,000 ML IV ONE (10:40)
[2022-06-24] MEDS ORDERED: ceFAZolin 1,000 MG in SODIUM CHLORIDE 0.9% 1,000 ML IRRIGATION ONE (10:40)
[2022-06-24] MEDS ORDERED: NALOXONE 0.4 MG/ML 1 ML VIAL IV PRN (11:45)
[2022-06-24] MEDS ORDERED: MAGNESIUM HYDROXIDE 2,400 MG/10 ML CUP PO PRN (11:45)
[2022-06-24] MEDS ORDERED: HYDROcodone/APAP 5-325MG 1 EACH TAB PO PRN (11:45)
[2022-06-24] MEDS ORDERED: HYDROmorphone 0.5 MG/0.5 ML SYRINGE IVP PRN ×2 (11:45)
--- NOTE | 2022-06-24 11:52 | P.ANPRN ---
Procedure Note - Anesthesia - Nerve Block Performed Left Adductor Canal Infusion Time Out Performed: Yes ([id number]) Date of Procedure: 06/24/22 Procedure Start Time: 08:42 Procedure Stop Time: 08:46 Location of Patient: PreOp Indication: Acute Post-Operative Pain, Requested by Surgeon Specifically requested for management of pain by : Tristen Rubio Sedation Type: Sedate with meaningful contact maintained Preparation: Sterile Prep, Sterile Dressing Position: Supine Catheter Depth at Skin (cm): 7 Catheter: Indwelling Needle Types: Pajunk Needle Gauge: 18 Ultrasound used to visualize needle placement: Yes Ultrasound used to observe medication spread: Yes Injectate: 0.5% Ropivacaine (see comment for volume) (20cc) Blood Aspirated: No Pain Paresthesia on Injection Noted: No Resistance on Injection: Normal Image Stored and Saved: Yes Events: Uneventful and Well Tolerated
--- NOTE | 2022-06-24 11:53 | P.ANPRN ---
Procedure Note - Anesthesia - Nerve Block Performed Left iPack Single Time Out Performed: Yes ([id number]) Date of Procedure: 06/24/22 Procedure Start Time: 08:47 Procedure Stop Time: 08:51 Location of Patient: PreOp Indication: Acute Post-Operative Pain, Requested by Surgeon Specifically requested for management of pain by DrAndrea: Ramiro Rubio Sedation Type: Sedate with meaningful contact maintained Preparation: Sterile Prep Position: Supine Catheter: None Needle Types: Pajunk Needle Gauge: 21 Ultrasound used to visualize needle placement: Yes Ultrasound used to observe medication spread: Yes Injectate: 0.5% Ropivacaine (see comment for volume) (20cc) Blood Aspirated: No Pain Paresthesia on Injection Noted: No Resistance on Injection: Normal Image Stored and Saved: Yes Events: Uneventful and Well Tolerated
--- NOTE | 2022-06-24 12:09 | P.OP ---
Date of Procedure: 06/24/22 Preoperative Diagnosis: Left knee severe medial compartment osteoarthrosis Postoperative Diagnosis: Same Procedure(s) Performed: Left total knee arthroplastycementedcruciate retaining Implants: Depuy Attune size 5 narrow cemented femoral component, size 4 cemented tibial component, 10 mm articular surface, 32 mm cemented patellar component. This was a cruciate retaining implant. Anesthesia: [facility] Surgeon: Tristen Rubio Senior Premium Auditor #1: Ghulam Varela Estimated Blood Loss (ml): 50 Pathology: other (Bone fragments) Condition: stable Disposition: PACU Indications for Procedure: The patient's a 52-year-old female presents with progressive left knee pain secondary to osteoarthrosis despite conservative measures. A discussion the risks and benefits of operative intervention versus continued conservative measures was made with patient. She opted to proceed with surgery. Operative risks to include infection, neurovascular injury, development of blood clots, possible component loosening/failure need for subsequent procedures was discussed. Informed consent was obtained. Operative Findings: As below Description of Procedure: The patient was brought to the operating room, and after induction of spinal anesthesia the left lower extremity was prepped and draped in a normal fashion. The tourniquet was inflated to 270 mmHg. A longitudinal incision extending 3 finger breaths above the superior pole of the patella extending to the medial aspect the tibial tubercle was then made. The skin and subcutaneous tissues were divided sharply. Electrocautery was used for hemostasis. A medial parapatellar arthrotomy was then performed. The medial soft tissues to include the superficial and deep portions of the medial collateral ligament as well as the medial hamstring tendons were elevated subperiosteally. The proximal medial tibia osteophytes were carefully removed. The patella was everted. The knee was flexed. A portion of the retropatellar fat pad was excised sharply. The anterior cruciate ligament was sacrificed. A starting hole was made in the distal femur 1 cm anterior to the posterior cruciate origin. An intramedullary femoral guide was gently inserted planning on 5 valgus distal cut with 9 mm distal resection. The cutting block was pinned in place. The distal cut was then made. The posterior referencing sizing guide was utilized. 3 of external rotation was built into the system and verified off the trans- epicondylar axis and the posterior condyles. I felt size 5 narrow was most appropriate. The cutting block was pinned in place. The anterior, posterior, and chamfer cuts were then made. The bone fragments were removed. A sulcus cut was then made with the appropriate guide. The trial size 5 narrow femoral component was then placed and was fully seated. There was good anterior to posterior and medial to lateral fit. The distal peg holes were then drilled. The trial component was then removed. Attention was then paid towards preparing the proximal tibia. An extra medullary guide was utilized in line with the tibial shaft and second metatarsal distally. A 7 posterior slope was planned. I planned on 2 mm resection from the medial compartment. The cutting block was pinned in place. The proximal tibial cut was then made. The bone was removed in one fragment. The remnants of the medial and lateral menisci were excised the capsule junction with electrocautery. The tibia sized most appropriately at size 4. The posterior osteophytes off the distal femur were carefully removed with a curved osteotome. The trial tibial and femoral components were placed along with a 10 millimeters articular surface. I was able to obtain full flexion and extension with good stability with varus and valgus stress. After several flexion and extension cycles, the tibial rotation was marked with electrocautery in line with the medial one third of the tibial tubercle. Attention was then paid towards preparing the patella. A patella reamer was utilized taking this down to 14 mm of bone stock. A good flush cut was made. The patella sized most appropriately at 32 millimeters. The peg holes were then drilled. The trial component was placed. The knee was taken through a range of motion. I had good patellofemoral tracking with no hands technique. The trial components were then removed. The tibia was prepared in the appropriate rotation with appropriate drill and keel punch. The flexion and extension gaps were checked and felt to be symmetric. The bony surfaces were prepared with pulsatile lavage and dried. The deep tibial component was then cemented in place and was fully seated. Excess cement was removed. The femoral component was cemented in place and was fully seated. Again excess cement was removed. The trial 10 millimeters surface was then inserted in the knee was put in full extension. The patella component was cemented in place. After the cement had sufficiently hardened, the knee was again taken through a range of motion. Again there was good stability in flexion and extension with varus and valgus stress. The trial articular surface was then removed. The final articular surface was placed and was impacted. Care was taken to avoid any soft tissue interposition. Pulsatile lavage was again utilized. The tourniquet was deflated with approximately 60 minutes total tourniquet time. There was minimal drainage therefore a deep drain was not placed. The medial parapatellar arthrotomy was then closed with #2 Ethibond suture. The subcutaneous tissues were reapproximated interrupted 2-0 Vicryl sutures. The skin was reapproximated with 3-0 subarticular strata fix suture. Skin tape and adhesive was applied. A sterile dressing was applied. The patient was then awoken from sedation and transferred to recovery room in good condition. Blood loss was estimated at 50 milliliters. No complications were incurred. Sponge and needle counts were correct at the end the case. Ghulam DAVIS assisted during the major components this case to include exposure, bone resection, and implantation.
[2022-06-24] MEDS ORDERED: diphenhydrAMINE 50 MG/ML 1 ML VIAL IVP ONE (12:28)
[2022-06-24] MEDS ORDERED: ROPIVACAINE 1,100 MG, SODIUM CHLORIDE 0.9% 500 ML 330 ML, EMPTY PAIN BALL 1 EACH MISCELLANE PRN ×2 (12:40)
--- NOTE | 2022-06-24 12:45 | XR ---
Exam: Left knee 2 views Date: 06/24/2022 Comparison: 11/20/2018 Clinical History: Postoperative left knee. Technique: 2 views of the left knee were obtained per protocol. Findings: There is a well seated total knee arthroplasty with excellent alignment there is no periprosthetic segundo cency or fracture. There is a small suprapatellar effusion, as well as soft tissue in joint space gas , which are all consistent with recent surgery. Impression: Uncomplicated left total knee arthroplasty with excellent alignment.
[2022-06-24 13:34] LABS: Glucose,Whole Blood 194 mg/dL (70-110)
[2022-06-24] MEDS ORDERED: ALBUTEROL NEBULIZED 2.5 MG/3 ML INHALATION PRN (16:24)
[2022-06-24] MEDS ORDERED: ACETAMINOPHEN TAB 500 MG TAB PO PRN (16:24)
[2022-06-24] MEDS ORDERED: ALPRAZolam 1 MG TAB PO PRN (16:24)
[2022-06-24] MEDS: HYDROcodone/APAP 7.5-325MG 1 EACH TAB PO PRN (20:17)
[2022-06-24 20:31] LABS: Glucose,Whole Blood 166 mg/dL (70-110)
[2022-06-24] MEDS ORDERED: SENNOSIDES-DOCUSATE SODIUM 1 EACH TAB PO SCH (21:00)
[2022-06-25] MEDS: HYDROcodone/APAP 7.5-325MG 1 EACH TAB PO PRN (05:02)
[2022-06-25] MEDS: LACTATED RINGERS 1,000 ML IV SCH (06:29)
[2022-06-25 06:30] LABS: Glucose,Whole Blood 131 mg/dL (70-110)
[2022-06-25 07:38] VITALS: BP 109/73; PULSE 92; RESP 16; TEMP 98.7
--- NOTE | 2022-06-25 08:18 | P.PN ---
Progress Note - Text Progress Note Date: 06/25/22 (0260) Anesthesiology Postop day 1 status post total knee arthroplasty with adductor canal catheter. Patient doing well. VAS 2 out of 10. Gross strength intact in lower extremity. Afebrile. Denies alterations in sensorium. Catheter site intact. Heart regular rate Lungs nonlabored Abdomen nondistended Assessment: Postop day 1 status post total knee arthroplasty with adductor canal catheter Plan: 1.All questions answered. Maintain catheter 2 more days with patient removal at home. Instructions to be given at discharge. 2.This note was dictated using FunCaptcha software. Please be advised there is a potential for misspellings or errors in secure software assessor.
[2022-06-25] MEDS ORDERED: METOPROLOL SUCCINATE (ER) 50 MG TAB.ER.24H PO SCH (09:00)
[2022-06-25] MEDS ORDERED: MELOXICAM 7.5 MG TAB PO SCH (09:00)
[2022-06-25] MEDS ORDERED: FLUoxetine HCL 10 MG CAP PO SCH (09:00)
[2022-06-25] MEDS ORDERED: ASPIRIN 81 MG PO SCH (09:00)
[2022-06-25] MEDS ORDERED: RIVAROXABAN 10 MG TAB PO SCH (09:00)
[2022-06-25] MEDS ORDERED: metFORMIN 500 MG TAB PO SCH (09:00)
--- NOTE | 2022-06-25 09:00 | P.DS ---
Providers Date of admission: 06/24/2022 Expected date of discharge: 06/25/22 Attending physician: Tristen Rubio Consults: 06/24/22 11:48 Consult Physician Routine Consulting Provider: Chantel Nichols Consult Reason/Comments: Medical Management s/p left total knee arthroplasty Do you want consulting provider notified?: Yes Primary care physician: Chantel Nichols Hospital Course: Date of admission: 06/24/2022 Date of discharge: 06/25/2022 Admission diagnosis: Left knee osteoarthritis Discharge diagnosis: same Attending physician: Dr. Rubio Surgical procedures: Left total knee arthroplasty Brief history: Patient is a 52-year-old female with a history of progressive primary left knee osteoarthritis. At this point patient has failed conservative treatment measures and has opted to proceed with a elective left total knee arthroplasty. Hospital course: Details of patient's surgery can be found in operative report. Patient tolerated the procedure well and was subsequently transported to orthopedic floor. Patient's orthopeidc and medical care was provided daily. Patient had daily laboratory tests performed for evaluation of overall blood counts. Patient had daily physical therapy to include strengthening range of motion as well as education with walker ambulation. Patient was treated with Xarelto for their postoperative DVT prophylaxis during their inpatient stay. Patient was noted to have a relatively uneventful postoperative course. Patient reported satisfactory pain control with oral pain medications by postoperative day 1. Patient showed satisfactory progress with physical therapy. Patient moved steadily through the program and had no difficulty meeting the goals by postoperative day 1. Given patient's otherwise satisfactory course and having met physical therapy goals, plan is to discharge patient home with health services on postoperative day 1. Discharge condition/disposition: Patient will be discharged home with health services in stable condition. Discharge medications: Instructions are given on resumption of patient's normal daily medications per primary care recommendation, in addition patient will be prescribed [place] 7.5 mg/325 mg; senna; eliquis 2.5 mg BID x 2 weeks. Orthopedic Discharge Instructions: 1. Wound care and infection precautions, keep incision dry and covered while showering, no lotions, creams, moisturizers. No soaking, pools, hot tubs. Do not scrub over incision. 2. Weight-bear as tolerated with walker / cane until follow-up. 3. Ice and elevate when necessary. Do not exceed 20 minutes per hour with ice pack. 4. Utilize compression sleeve until seen at first follow up appointment. 5. Pain meds and anticoagulants per prescription. 6. Pain medication has potential to cause constipation. Increase oral fluid and fiber intake. Contact primary care provider if you have not had a bowel movement within 48 hours after discharge. 7. No anti-inflammatory medication until discussed at first post operative visit, this including Motrin, Aleve, Mobic, Diclofenac 8. Follow up in office at 2 weeks postop with Richardson Mcfarland PA-C / Ghulam Varela PA-C 9. Follow up with your primary care doctor 7-10 days after discharge. 10. Contact [facility] with any questions, . Keep incision clean, dry, intact. While showering, cover fusion tape was Saran wrap. Keep fusion tape on until follow-up appointment in office in 2 weeks Assessment: Left knee osteoarthritis Procedures: Left total knee arthroplasty Patient Condition at Discharge: Good Plan - Discharge Summary Discharge Rx Participant: Yes New Discharge Prescriptions: New Sennosides/Docusate Sodium [Senna Plus 8.6-50 mg Softgel] 1 each PO DAILY #20 capsule Apixaban [Eliquis] 2.5 mg PO BID #60 tab HYDROcodone/APAP 7.5-325MG [[place] 7.5] 1 - 2 each PO Q6HR PRN #32 tab PRN Reason: Pain No Action Acetaminophen Tab [Tylenol Tab] 500 mg PO Q6H PRN PRN Reason: Pain ALPRAZolam [Xanax] 1 mg PO BID PRN PRN Reason: Anxiety metFORMIN HCL [Glucophage] 500 mg PO QAM Metoprolol Succinate [Toprol XL] 50 mg PO DAILY FLUoxetine HCL [PROzac] 10 mg PO DAILY Meloxicam [Mobic] 15 mg PO DAILY Albuterol Sulfate [Proair Hfa] 1 - 2 puff INHALATION Q6HR PRN PRN Reason: Shortness Of Breath Aspirin 81 mg PO DAILY Discharge Medication List ALPRAZolam [Xanax] 1 mg PO BID PRN 02/07/17 [History] Acetaminophen Tab [Tylenol Tab] 500 mg PO Q6H PRN 02/07/17 [History] Albuterol Sulfate [Proair Hfa] 1 - 2 puff INHALATION Q6HR PRN 12/09/20 [History] Metoprolol Succinate [Toprol XL] 50 mg PO DAILY 12/09/20 [History] metFORMIN HCL [Glucophage] 500 mg PO QAM 12/09/20 [History] Aspirin 81 mg PO DAILY 05/19/22 [History] FLUoxetine HCL [PROzac] 10 mg PO DAILY 05/19/22 [History] Meloxicam [Mobic] 15 mg PO DAILY 05/19/22 [History] Apixaban [Eliquis] 2.5 mg PO BID #60 tab 06/25/22 [Rx] HYDROcodone/APAP 7.5-325MG [[place] 7.5] 1 - 2 each PO Q6HR PRN #32 tab 06/25/22 [Rx] Sennosides/Docusate Sodium [Senna Plus 8.6-50 mg Softgel] 1 each PO DAILY #20 capsule 06/25/22 [Rx] Follow up Appointment(s)/Referral(s): Ghulam Varela, REY [PHYSICIAN CHOKE SETTER] - 2 Weeks [facility] [NON-STAFF] - 1-2 Days ([facility] will call you to schedule your in home nursing and physical therapy visits. ) [facility] [NON-STAFF] - As Needed (Please call [facility] once home to arrange delivery of the Continous Passive Motion (CPM) machine. ) Patient Instructions/Handouts: Knee Replacement (DC) Activity/Diet/Wound Care/Special Instructions: Orthopedic Discharge Instructions: 1. Wound care and infection precautions, keep incision dry and covered while showering, no lotions, creams, moisturizers. No soaking, pools, hot tubs. Do not scrub over incision. 2. Weight-bear as tolerated with walker / cane until follow-up. 3. Ice and elevate when necessary. Do not exceed 20 minutes per hour with ice pack. 4. Utilize compression sleeve until seen at first follow up appointment. 5. Pain meds and anticoagulants per prescription. 6. Pain medication has potential to cause constipation. Increase oral fluid and fiber intake. Contact primary care provider if you have not had a bowel movement within 48 hours after discharge. 7. No anti-inflammatory medication until discussed at first post operative visit, this including Motrin, Aleve, Mobic, Diclofenac 8. Follow up in office at 2 weeks postop with Richardson Mcfarland PA-C / Ghulam Varela, PA-C 9. Follow up with your primary care doctor 7-10 days after discharge. 10. Contact [facility] with any questions, . Keep incision clean, dry, intact. While showering, cover fusion tape was Saran wrap. Keep fusion tape on until follow-up appointment in office in 2 weeks Discharge Disposition: HOME WITH HOME HEALTH SERVICES
--- NOTE | 2022-06-25 09:04 | P.PN ---
Subjective Progress Note Date: 06/25/22 Principal diagnosis: Left knee osteoarthritis Patient was seen at bedside this morning walking up to go the bathroom. Patient says she is looking forward to going home later today. Patient says she'll be staying at her mother's house for several days following surgery. Patient says her mother does have a wheelchair and walker accessible home with a ramp going up into the house. Patient says she is having some pain currently at the front of the knee, however, it is controlled with pain medication. Patient says she has urinated planning since surgery yesterday. Patient says she has not had a bowel movement yet, however, patient says she has been passing gas. Patient says she does have a walker and cane at home. Patient denies chest pain, fever, shortness breath, nausea, vomiting, change in vision, loss of bowel/bladder control. Objective - Vital Signs Vital signs: Vital Signs Temp 98.7 F 06/25/22 07:00 Pulse 92 06/25/22 07:00 Resp 16 06/25/22 07:00 BP 109/73 06/25/22 07:00 Pulse Ox 94 L 06/25/22 07:00 FiO2 Intake & Output 06/24/22 06/25/22 06/25/22 18:59 06:59 18:59 Intake Total 1751 1200 Output Total 450 Balance 1301 1200 Weight 95.4 kg Intake: IV 1751 Intake, IV Titration 1200 Amount Lactated Ringers 1,000 ml 1100 @ 20 mls/hr IV .Q24H [facility] Rx#:[id number] ceFAZolin 2 gm In Sodium 100 Chloride 0.9% 50 ml @ 100 mls/hr IVPB Q8H [facility] Rx#: [id number] Output: Urine 400 Estimated Blood Loss 50 Other: Voiding Method Toilet Toilet # Voids 2 5 - Exam Left knee: Incision is clean, dry, and intact. The exofin fusion tape is in good condition. There is minimal soft tissue swelling and ecchymosis surrounding the medial and lateral aspects of the incision. Calf is soft, no tenderness with palpation. Plantar flexion, dorsiflexion, EHL, FHL are intact. Sensory exam to light touch throughout the extremity is intact, dorsal pedis pulses 2+. - Labs Labs: Abnormal Lab Results - Last 24 Hours (Table) 06/24/22 06/24/22 06/25/22 Range/Units 13:31 20:20 06:28 POC Glucose (mg/dL) 194 H 166 H 131 H (70-110) mg/dL Assessment and Plan Assessment: 1. Left knee osteoarthritis - Postoperative day 1 status post left total knee arthroplasty Plan: 1. Left knee osteoarthritis - patient stable at bedside this morning. Left total knee arthroplasty performed yesterday, 06/24/2022. Patient does have a walker and cane at home. Discharge home today with health services. 2. Appreciate medical management 3. Pain management - [place] 4. GI prophylaxis - senna 5. DVT prophylaxis - Xarelto in hospital. going home with eliquis 2.5 mg BID x 2 weeks 6. PT/OT - weightbearing as tolerated with walker as needed 7. Encourage incentive spirometer use 8. Discharge planning - discharge home today with health services Time with Patient: Less than 30
[2022-06-25 09:29] LABS: Basophils # (A) 0.01 X 10*3/uL (0.00-0.10); Basophils % (A) 0.1 %; Eosinophils # (A) 0.02 X 10*3/uL (0.04-0.35); Eosinophils % (A) 0.2 %; HCT 37.6 % (37.2-46.3); HGB 12.1 g/dL (12.0-15.0); Immature Grans, Automated 0.4 %; Lymphocytes # (A) 1.15 X 10*3/uL (0.90-5.00); Lymphocytes % (A) 11.8 %; MCH 30.6 pg (27.0-32.0); MCHC 32.2 g/dL (32.0-37.0); MCV 94.9 fL (80.0-97.0); Mean Platelet Volume 10.7 fL (9.5-12.2); Monocytes % (A) 9.2 %; NRBC Per 100 WBC 0 /100 WBCS (0.0-0.0); Neutrophils # (A) 7.66 X 10*3/uL (1.80-7.70); Neutrophils % (A) 78.3 %; Platelet Count 183 X 10*3/uL (140-440); RBC 3.96 X 10*6/uL (4.10-5.20); RDW 12.7 % (11.5-14.5); WBC 9.78 X 10*3/uL (4.50-10.00)
[2022-06-25 09:43] LABS: African American GFR (CKD) 98.9 (60.0-200.0); Albumin 3.7 g/dL (3.8-4.9); Albumin/Globulin Ratio 1.85 (1.60-3.17); BUN/Creat Ratio 16.75 Ratio (12.00-20.00); Blood Urea Nitrogen 13.4 mg/dL (9.0-27.0); Non-African American GFR(CKD) 85.4 (60.0-200.0); Potassium 4.2 mmol/L (3.5-5.5); Total Bilirubin 0.4 mg/dL (0.30-1.20); Total Protein 5.7 g/dL (6.2-8.2)
--- NOTE | 2022-06-25 11:08 | P.CONS ---
History of Present Illness - Reason for Consult Consult date: 06/25/22 - History of Present Illness Larisa Burgos, is a 52-year-old female well known to my practice who was admitted to [facility] by Dr. Tristen Eid and underwent left total knee arthroplasty on 06/24/2022, medical consultation was requested for management while hospitalized. Past medical history is significant for history of hypertension, history of osteoarthritis, history of [id number] diabetes mellitus, history of depression with anxiety disorder, and history of continued tobacco abuse. On review of systems patient is alert and oriented 3 in no apparent distress she is complaining of pain in the left knee especially when she attempts to walk otherwise she denies any complaints there is no fever or chills no headache or dizziness no chest pain no shortness of breath no cough no nausea or vomiting no abdominal pain no diarrhea no blood in the stools no burning with urination no frequency or urgency and no hematuria. Past Medical History Past Medical History: Asthma, Diabetes Mellitus, Hypertension, Musculoskeletal Disorder, Osteoarthritis (OA), Skin Disorder Additional Past Medical History / Comment(s): Frequent vertigo, hx rapid heart rate at times, 2 BULGING DISCS IN BACK, ?TIA >year ago, had some left sided face tightening, per patient Carotid Doppler WNL, Rosacea. History of Any Multi-Drug Resistant Organisms: None Reported Past Surgical History: Hysterectomy, Orthopedic Surgery, Tubal Ligation Additional Past Surgical History / Comment(s): Teeth pulled, bilateral carpal tunnel, left knee arthoscopy. Past Anesthesia/Blood Transfusion Reactions: No Reported Reaction Past Psychological History: Anxiety Smoking Status: Former smoker Past Alcohol Use History: Occasional Additional Past Alcohol Use History / Comment(s): Quit smoking 2.5 yrs ago, smoked <1ppd since age 16. Past Drug Use History: None Reported - Past Family History Mother Family Medical History: No Reported History Medications and Allergies Home Medications Medication Instructions Recorded Confirmed Type ALPRAZolam [Xanax] 1 mg PO BID PRN 02/07/17 06/24/22 History Acetaminophen Tab [Tylenol Tab] 500 mg PO Q6H PRN 02/07/17 06/24/22 History Albuterol Sulfate [Proair Hfa] 1 - 2 puff INHALATION Q6HR PRN 12/09/20 06/24/22 History Metoprolol Succinate [Toprol XL] 50 mg PO DAILY 12/09/20 06/24/22 History metFORMIN HCL [Glucophage] 500 mg PO QAM 12/09/20 06/24/22 History Aspirin 81 mg PO DAILY 05/19/22 06/24/22 History FLUoxetine HCL [PROzac] 10 mg PO DAILY 05/19/22 06/24/22 History Meloxicam [Mobic] 15 mg PO DAILY 05/19/22 06/24/22 History Apixaban [Eliquis] 2.5 mg PO BID #60 tab 06/25/22 Rx HYDROcodone/APAP 7.5-325MG [[place] 1 - 2 each PO Q6HR PRN #32 tab 06/25/22 Rx 7.5] Sennosides/Docusate Sodium [Senna 1 each PO DAILY #20 capsule 06/25/22 Rx Plus 8.6-50 mg Softgel] Allergies Allergy/AdvReac Type Severity Reaction Status Date / Time No Known Allergies Allergy Verified 06/24/22 07:44 Physical Exam Vitals: Vital Signs Temp Pulse Pulse Pulse Resp BP BP 06/25/22 07:00 98.7 F 92 16 109/73 06/25/22 01:45 98.5 F 101 H 18 109/65 06/24/22 20:00 97.9 F 109 H 18 110/72 06/24/22 15:00 108 H 129/83 06/24/22 14:45 95 129/89 06/24/22 14:30 82 124/74 06/24/22 13:50 107 H 16 132/59 06/24/22 13:35 93 16 132/61 06/24/22 13:20 94 16 131/59 06/24/22 13:09 98 16 131/60 06/24/22 12:54 92 16 128/58 06/24/22 12:35 95 16 140/65 06/24/22 12:20 98 15 141/68 06/24/22 12:05 97.1 F L 93 16 127/80 Pulse Ox 06/25/22 07:00 94 L 06/25/22 01:45 92 L 06/24/22 20:00 95 06/24/22 15:00 97 06/24/22 14:45 97 06/24/22 14:30 99 06/24/22 13:50 97 06/24/22 13:35 94 L 06/24/22 13:20 97 06/24/22 13:09 95 06/24/22 12:54 965 H 06/24/22 12:35 94 L 06/24/22 12:20 99 06/24/22 12:05 99 Intake and Output 06/24/22 06/25/22 06/25/22 22:59 06:59 14:59 Intake Total 1200 Output Total 400 Balance -400 1200 Intake: Intake, IV Titration 1200 Amount Lactated Ringers 1,000 ml 1100 @ 20 mls/hr IV .Q24H [facility] Rx#:[id number] ceFAZolin 2 gm In Sodium 100 Chloride 0.9% 50 ml @ 100 mls/hr IVPB Q8H [facility] Rx#: [id number] Output: Urine 400 Other: Voiding Method Toilet # Voids 2 5 In general patient is alert and oriented x 3 in no distress HEENT head normocephalic and atraumatic Neck is supple no JVD no goiter no lymphadenopathy no carotid bruit Chest examination is clear to auscultation no crackles no wheezing Cardiac exam reveals regular heart sounds S1 and S2 no gallops no murmurs Abdomen is soft nontender no organomegaly with normal bowel sounds Extremity exam reveals no edema no cyanosis or clubbing Neurological examination reveals no gross focal deficits Results CBC & Chem 7: 06/25/22 06:24 06/25/22 06:24 Labs: Abnormal Lab Results - Last 24 Hours (Table) 06/24/22 06/24/22 06/25/22 Range/Units 13:31 20:20 06:24 RBC 3.96 L (4.10-5.20) X 10*6/uL Eosinophils # 0.02 L (0.04-0.35) X 10*3/uL Glucose (70-110) mg/dL POC Glucose (mg/dL) 194 H 166 H (70-110) mg/dL Total Protein (6.2-8.2) g/dL Albumin (3.8-4.9) g/dL 06/25/22 06/25/22 Range/Units 06:24 06:28 RBC (4.10-5.20) X 10*6/uL Eosinophils # (0.04-0.35) X 10*3/uL Glucose 136 H (70-110) mg/dL POC Glucose (mg/dL) 131 H (70-110) mg/dL Total Protein 5.7 L (6.2-8.2) g/dL Albumin 3.7 L (3.8-4.9) g/dL Assessment and Plan Plan: Severe osteoarthritis of the left knee status post left total knee arthroplasty on 06/24/[address] Rubio, pain management and DVT prophylaxis per orthopedic protocol Underlying history of hypertension Underlying history of mxw-tredalv-llsbgxynx diabetes mellitus Underlying history of osteoarthritis Underlying history of depression Underlying history of anxiety disorder Underlying history of tobacco abuse At this time patient was seen and examined on the medical floor Home medications reviewed and reordered Pain management and DVT prophylaxis per orthopedic protocols Will follow during this admission for medical management
== END 2022-06-25 11:28 | disposition home health service (06) ==
LOC: OR 07:15 → 4SSUR 13:49 → OR 06-25 11:28
PROVIDERS: ATTEND Orthopaedic Surgery
DX: M17.12 Unilateral primary osteoarthritis, left knee (principal); G89.18 Other acute postprocedural pain; J45.909 Unspecified asthma, uncomplicated; E11.9 Type 2 diabetes mellitus without complications; I10 Essential (primary) hypertension; M19.90 Unspecified osteoarthritis, unspecified site; F41.9 Anxiety disorder, unspecified; Z98.51 Tubal ligation status; Z98.890 Other specified postprocedural states; Z90.710 Acquired absence of both cervix and uterus; Z87.891 Personal history of nicotine dependence; Z79.82 Long term (current) use of aspirin; Z79.899 Other long term (current) drug therapy; Z79.1 Long term (current) use of non-steroidal anti-inflammatories (NSAID)
CPT/HCPCS: 97162; 64999; 64448; 76942; 80053; 85025; 73560; 27447; C1713 ×2; C1776; C1751; J2250; J1200; J1100; J0690 ×3; J2405; J3010; J2795; J1170; 88300

== ENCOUNTER → 2022-11-11 | Outpatient (CLI) | payer MEDICARE, OTHER ==
--- NOTE | 2022-11-14 07:51 | MM ---
Reason for Exam: Screening (asymptomatic). Last mammogram was performed 1 year(s) and 6 month(s) ago. Patient History: Menarche at age 12. First Full-Term at age 20. Hysterectomy at age 45. Postmenopausal. Maternal cousin had breast cancer, age 50. Risk Values: Didi 5 year model risk: 0.8%. NCI Lifetime model risk: 7.0%. Prior Study Comparison: 01/09/2019 Bilateral Screening Mammogram, [facility]. 04/07/2020 Bilateral Screening Mammogram, [facility]. 05/27/2021 Bilateral Screening Mammogram, [facility]. Tissue Density: There are scattered fibroglandular densities. Findings: Analyzed By CAD. There is no suspicious group of microcalcifications or new suspicious mass in either breast. Overall Assessment: Negative, BI-RAD 1 Management: Screening Mammogram of both breasts in 1 year. . Patient should continue monthly self-breast exams. A clinical breast exam by your physician is recommended on an annual basis. This exam should not preclude additional follow-up of suspicious palpable abnormalities. Note on Didi scores and lifetime risk: 1. A Didi score greater than 3% is considered moderate risk. If this is the case, consider specialist referral to assess eligibility for a risk reducing agent. 2. If overall lifetime risk for the development of breast cancer is 20% or higher, the patient may qualify for future screening with alternating mammogram and breast MRI. Electronically signed and approved by: Ronn Zuñiga M.D. Radiologis
== END | disposition home or self-care (01) ==
LOC: RADMAMWWP 15:38
PROVIDERS: ATTEND Internal Medicine
DX: Z12.31 Encounter for screening mammogram for malignant neoplasm of breast (principal); Z78.0 Asymptomatic menopausal state; Z80.3 Family history of malignant neoplasm of breast
CPT/HCPCS: 77067

== ENCOUNTER → 2023-10-17 | Outpatient (CLI) | payer MEDICARE, OTHER ==
--- NOTE | 2023-11-11 20:09 | CT ---
Site ID synapse default Patient Larisa Burgos J ID [id number] Age/Gender: 53Y, F Order # N/A Procedure Head^FACIAL_ORBIT_Customized (Adult) Date 10/17/2023 11:12:11 AM EXAMINATION TYPE: CT sinus wo con CT DLP: 588 mGycm, Automated exposure control for dose reduction was used. DATE OF EXAM: 10/25/2023 1:54 PM COMPARISON: CT sinus 03/13/2015. CLINICAL INDICATION: Female, 53 year old with history of sinusitis. CONTRAST: None. TECHNIQUE: Multiple thin axial images were obtained through the paranasal sinuses without the use of IV contrast. Additional coronal and sagittal reformatted images were submitted for evaluation. FINDINGS: Frontal sinuses: Normally developed and aerated. Frontal Recess: Clear Maxillary Sinuses: Normally developed. The left is well aerated. Inferior right maxillary sinus 2.7 c m cystic lesion. Previously measured up to 2.0 cm. Maxillary Infundibula([facility]): Clear, . Ethmoid sinuses: Normally developed and aerated. Ethmoidal notch: Protected and abutting the lateral lamina. Sphenoid sinuses: Normally developed and aerated. There is sellar sphenoid sinus pneumatization witho ut evidence of dehiscence. No dehiscence of carotid canal. No evidence of optic nerve dehiscence wit hin the sphenoid sinus. Sphenoethmoidal recesses: Clear. Nasal septum: Deviation to the right. Nasal Turbinates: Within normal limits. Mastoid air cells & middle ears: The right mastoid air cells are clear. Near complete opacification o f the left mastoid air cells which is new from prior CT. The middle ears are grossly unremarkable. Modified Soft tissues & Brain: Partially seen without gross abnormality. Globes are intact. Other: Cribriform plate demonstrates symmetric Keros classification type 2 cribriform plate. No evidence of bony dehiscence of skull base. Lamina papyracea is intact without evidence of remote orbital fracture or orbital prolapse into the e thmoid sinus. IMPRESSION: 1. Interval increase in size of 2.7 cm lesion within the right maxillary sinus which may represent a mucous retention cyst or polyp, previously 2.0 cm. Remaining paranasal sinuses are clear. 2. The ostiomeatal units, frontonasal and sphenoethmoidal recesses are clear.
== END | disposition home or self-care (01) ==
LOC: RADCTMAIN 11:00
PROVIDERS: ATTEND Otolaryngology
DX: J32.9 Chronic sinusitis, unspecified (principal); J34.89 Other specified disorders of nose and nasal sinuses
CPT/HCPCS: 70486

== ENCOUNTER → 2024-04-30 | Outpatient (CLI) | payer MEDICARE, OTHER ==
--- NOTE | 2024-04-30 10:59 | MM ---
Reason for Exam: Screening (asymptomatic). Last mammogram was performed 1 year(s) and 5 month(s) ago. Patient History: Menarche at age 12. First Full-Term at age 20. Hysterectomy at age 45. Postmenopausal. Maternal cousin had breast cancer, age 50. Risk Values: Didi 5 year model risk: 0.9%. NCI Lifetime model risk: 6.8%. Prior Study Comparison: 04/07/2020 Bilateral Screening Mammogram, [facility]. 05/27/2021 Bilateral Screening Mammogram, [facility]. 11/11/2022 Bilateral MG screening mammo w CAD, [facility]. Tissue Density: There are scattered areas of fibroglandular density. Findings: Analyzed By CAD. Right breast: There is no suspicious group of microcalcifications or new suspicious mass. Left breast: There is no suspicious group of microcalcifications or new suspicious mass. Overall Assessment: Negative, BI-RAD 1 Management: Screening Mammogram of both breasts in [address] [facility] will attempt to contact patient to return for supplemental views and ultrasound if indicated. Patient should continue monthly self-breast exams. A clinical breast exam by your physician is recommended on an annual basis. This exam should not preclude additional follow-up of suspicious palpable abnormalities. Note on Didi scores and lifetime risk: 1. A Didi score greater than 3% is considered moderate risk. If this is the case, consider specialist referral to assess eligibility for a risk reducing agent. 2. If overall lifetime risk for the development of breast cancer is 20% or higher, the patient may qualify for future screening with alternating mammogram and breast MRI. [facility], , 04/30/2024 10:51 AM. Electronically signed and approved by: Jamshid Escalona DO
== END | disposition home or self-care (01) ==
LOC: RADMAMWWP 10:31
PROVIDERS: ATTEND Internal Medicine
DX: Z12.31 Encounter for screening mammogram for malignant neoplasm of breast (principal); R92.323 Mammographic fibroglandular density, bilateral breasts; Z78.0 Asymptomatic menopausal state; Z80.3 Family history of malignant neoplasm of breast
CPT/HCPCS: 77063; 77067

== ENCOUNTER 2024-05-21 07:34 | Day surgery (SDC) | payer MEDICARE, OTHER ==
[2024-05-21 07:56] VITALS: TEMP 97.2
[2024-05-21 08:05] LABS: Glucose,Whole Blood 157 mg/dL (70-110)
[2024-05-21] MEDS: IV FLUID CONTINUATION 1,000 ML IV ONE (08:06)
[2024-05-21] MEDS: LACTATED RINGERS 1,000 ML IV SCH (08:06)
[2024-05-21] MEDS ORDERED: PROPOFOL 10 MG/ML 20 ML VIAL IV ONE (08:27)
[2024-05-21] MEDS ORDERED: LIDOCAINE 1% INJ 10MG/ML (20 ML MDV) ONE (08:27)
--- NOTE | 2024-05-21 08:32 | P.GSHP ---
History of Present Illness H&P Date: 05/21/24 Chief Complaint: Colon cancer screening 54-year-old female here for colonoscopy. She thinks her last colonoscopy was 7 years ago although I cannot find record of that. No bowel complaints. No family history of colon cancer. Past Medical History Past Medical History: Asthma, Diabetes Mellitus, Eye Disorder, Hypertension, Musculoskeletal Disorder, Osteoarthritis (OA), Skin Disorder Additional Past Medical History / Comment(s): frequent vertigo, hx. hx rapid heart rate @times-metoprolol helps ( no glove finisher), 2 BULGING DISCS IN BACK, ?TIA >year ago, had some left sided face tightening @the time per pt-carotid doppler wnl per pt- on aspirin (no further workup), rosacea. glaucoma. . bladder leakage. seborrheic dermatitis- scalp and forehead. hx polyps. pt states she has some issues with short term memory -writes things down. History of Any Multi-Drug Resistant Organisms: None Reported Past Surgical History: Hysterectomy, Joint Replacement, Orthopedic Surgery, Tubal Ligation Additional Past Surgical History / Comment(s): teeth pulled. [facility] Abel robotic vaginal hysterectomy, [facility], arthroscopy left knee/ left knee replaced. colonoscopy. cyst removed from nose Past Anesthesia/Blood Transfusion Reactions: No Reported Reaction Smoking Status: Former smoker - Past Family History Mother Family Medical History: Diabetes Mellitus, Renal Disease Additional Family Medical History / Comment(s): breathing issues Medications and Allergies Home Medications Medication Instructions Recorded Confirmed Type ALPRAZolam [Xanax] 1 mg PO BID PRN 02/07/17 05/21/24 History Acetaminophen Tab [Tylenol Tab] 500 mg PO Q6H PRN 02/07/17 05/17/24 History Albuterol Sulfate [Proair Hfa] 1 - 2 puff INHALATION Q6HR PRN 12/09/20 05/17/24 History Metoprolol Succinate [Toprol XL] 50 mg PO DAILY 12/09/20 05/21/24 History metFORMIN HCL [Glucophage] 500 mg PO QAM 12/09/20 05/21/24 History Aspirin 81 mg PO DAILY 05/19/22 05/17/24 History FLUoxetine HCL [PROzac] 10 mg PO DAILY 05/19/22 05/17/24 History Fluticasone Nasal [place] [Flonase 1 spray EA NOSTRIL DAILY 05/17/24 05/17/24 History Nasal Roslyn] Hydrocortisone Cream 1 applic TOPICAL DIRECTED PRN 05/17/24 05/17/24 History [Hydrocortisone 2.5% Cream] Ketoconazole 2% Shampoo [Nizoral] 1 applic TOPICAL DIRECTED 05/17/24 05/21/24 History Latanoprost Ophth [Xalatan 0.005%] 1 drop BOTH EYES HS 05/17/24 05/21/24 History Meclizine [Antivert] 25 mg PO DIRECTED PRN 05/17/24 05/21/24 History traZODone HCL [Desyrel] 50 mg PO HS 05/17/24 05/17/24 History Allergies Allergy/AdvReac Type Severity Reaction Status Date / Time No Known Allergies Allergy Verified 05/21/24 07:47 Surgical - Exam Vital Signs Temp Pulse Resp BP Pulse Ox 97.2 F L 105 H 16 125/65 96 05/21/24 07:56 05/21/24 07:56 05/21/24 07:56 05/21/24 07:56 05/21/24 07:56 Physical exam: General: Well-developed, well-nourished HEENT: Normocephalic, sclerae nonicteric Abdomen: Nontender, nondistended Extremities: No edema Neuro: Alert and oriented Results - Labs Abnormal Lab Results - Last 24 Hours (Table) 05/21/24 Range/Units 08:02 POC Glucose (mg/dL) 157 H (70-110) mg/dL Assessment and Plan (1) Colon cancer screening Narrative/Plan: Will proceed with colonoscopy at this time. Current Visit: Yes Status: Acute Code(s): Z12.11 - ENCOUNTER FOR SCREENING FOR MALIGNANT NEOPLASM OF COLON SNOMED Code(s): 441750101
--- NOTE | 2024-05-21 08:48 | P.PCN ---
Date of Procedure: 05/21/24 Procedure(s) Performed: PREOPERATIVE DIAGNOSIS: Colon cancer screening POSTOPERATIVE DIAGNOSIS: Poor prep, transverse colon polyp, possible ileocecal valve polyp, mild sigmoid colon colitis PROCEDURE: Colonoscopy with snare polypectomy and biopsy ANESTHESIA: MAC SURGEON: Jeffery Grande M.D. SPECIMENS: Polyps, colitis ENDOSCOPIC PROCEDURE: The patient was placed on the endoscopy table in the left decubitus position. The Olympus colonoscope was inserted into the anus and passed under direct visualization to the base of the cecum. The patient's prep was poor. There was retained semisolid stool throughout. The base of the cecum was difficult to visualize in its entirety. Closer to the valve there was some polypoid looking mucosa that was biopsied. This may have simply been the ileocecal valve itself but it was unclear. This was not able to be well- visualized because of the stool and the angulation there. A biopsy took place. The ascending colon appeared normal. In the proximal transverse colon a sessile polyp measuring 1.2 x 0.5 cm was removed using the snare with cautery technique. Remainder of the transverse and descending colon appeared normal. In the sigmoid colon a 5 to 10 cm section of mild colonic mucosal erythema was noted. Biopsies were taken labeled colitis. The remainder of the sigmoid and rectum was normal. The patient did have extensive left-sided diverticulosis. Digital rectal examination was normal. The patient was taken to the recovery room in stable condition per anesthesia guidelines. RECOMMENDATIONS: Await biopsy results. Will likely require short-term follow- up.
[2024-05-21 09:05] VITALS: BP 123/70; PULSE 97; RESP 14
== END 2024-05-21 09:29 | disposition home or self-care (01) ==
LOC: ORWHC2ENDO 07:34
PROVIDERS: ATTEND Surgery
DX: Z12.11 Encounter for screening for malignant neoplasm of colon (principal); D12.3 Benign neoplasm of transverse colon; D12.0 Benign neoplasm of cecum; K57.30 Diverticulosis of large intestine without perforation or abscess without bleeding; K52.89 Other specified noninfective gastroenteritis and colitis; I10 Essential (primary) hypertension; E11.9 Type 2 diabetes mellitus without complications; J45.909 Unspecified asthma, uncomplicated; Z79.84 Long term (current) use of oral hypoglycemic drugs; Z79.82 Long term (current) use of aspirin; Z79.899 Other long term (current) drug therapy; Z87.891 Personal history of nicotine dependence; Z86.73 Personal history of transient ischemic attack (TIA), and cerebral infarction without residual deficits
CPT/HCPCS: 88305; 45380; 45385; J2003; J2704